=== PATIENT | female | born 1970 | race Caucasian/White ===

== ENCOUNTER 2020-07-02 13:58 | Emergency (ER) | payer BC ==
[~2020-07-02] VITALS: Ht 172.7 cm; Wt 83.4 kg
[2020-07-02] MEDS ORDERED: levoFLOXACIN-Levaquin 750MG/D5 150 ML IV ONE (15:45)
[2020-07-02] MEDS ORDERED: normal saline 1000ML IV soln IV ONE (15:45)
[2020-07-02 15:49] LABS: BASOPHILS % (AUTO) 0.5 % (0-1); EOSINOPHILS % (AUTO) 0 % (0-6); HEMATOCRIT 50.1 % (35.0-45.0); HEMOGLOBIN 16.7 g/dl (12.0-16.0); LYMPHOCYTES # (AUTO) 1.1 X10'3 (1.1-4.8); MEAN CORPUSCULAR HEMOGLOBIN 28.8 PG (27.0-31.0); MEAN CORPUSCULAR HGB CONC 33.4 g/dL (33.0-36.5); MEAN CORPUSCULAR VOLUME 86.2 FL (78-98); MEAN PLATELET VOLUME 9.7 FL (7.4-10.4); MONOCYTES # (AUTO) 0.4 X10'3 (0-0.9); NEUTROPHILS # (AUTO) 3.9 X10'3 (1.8-7.7); NEUTROPHILS % (AUTO) 72.5 % (42-75); PLATELET COUNT 144 X10'3 (140-440); RED BLOOD COUNT 5.81 X10'6 (4.20-5.60); RED CELL DISTRIBUTION WIDTH 14.1 % (11.5-14.5); WHITE BLOOD COUNT 5.4 X10'3 (4.5-11.0)
[2020-07-02] MEDS ORDERED: ALBUTEROL INHALER 1 PUFF/90 MCG INHALER IH PRN (15:50)
[2020-07-02 16:13] LABS: ALANINE AMINOTRANSFERASE 68 U/L (12-78); ALBUMIN 3.7 G/DL (3.4-5.0); ALBUMIN/GLOBULIN RATIO 0.7 (1.1-1.5); ALKALINE PHOSPHATASE 134 IU/L (46-116); ANION GAP 14 (8-16); ASPARTATE AMINO TRANSFERASE 51 U/L (10-37); BILIRUBIN,TOTAL 0.8 MG/DL (0.1-1.0); BLOOD UREA NITROGEN 23 MG/DL (7-18); BUN/CREATININE RATIO 17.7 (6.6-38.0); C-REACTIVE PROTEIN 11.25 MG/DL (0.0-0.5); CALCIUM 9.6 MG/DL (8.5-10.1); CHLORIDE 87 MMOL/L (99-107); POTASSIUM 5.3 MMOL/L (3.5-5.1); SODIUM 125 MMOL/L (135-145); TOTAL CARBON DIOXIDE 24.1 MMOL/L (24-32); TOTAL PROTEIN 9.1 G/DL (6.4-8.2); eGFR 44 ML/MIN
[2020-07-02 16:16] LABS: GLUCOSE 494 MG/DL (70-104)
[2020-07-02] MEDS ORDERED: normal saline 1000ML IV soln IVB ONE (16:20)
[2020-07-02] MEDS ORDERED: insulin regular, human 10 units/0.1 ml syringe SQ ONE (16:30)
--- NOTE | 2020-07-02 16:34 | NUR ---
POSSITVE COVID RESULT REPORTED TO [facility] HERCULES
[2020-07-02] MEDS ORDERED: insulin regular, human U-100 3ml vial - multi-dose SQ ONE (16:35)
[2020-07-02] MEDS ORDERED: dexamethasone sod phosphate 10mg/ml inj IV STA (16:42)
[2020-07-02] MEDS ORDERED: [UNRECOGNIZED DRUG - OTHER] IV ONE (16:45)
--- NOTE | 2020-07-02 16:58 | NUR ---
raheem [phone]
[2020-07-02] MEDS ORDERED: NO HOME MEDS (17:42)
[2020-07-02] MEDS ORDERED: DEXA4TAB67 PO (17:51)
[2020-07-02] MEDS ORDERED: AZIT500T PO (17:51)
[2020-07-02] MEDS ORDERED: ALBU6.7H9 INH (17:51)
[2020-07-02 18:08] VITALS: BP 112/68
[2020-07-02 20:32] LABS: ALBUMIN 2.6 G/DL (3.4-5.0); ANION GAP 8 (8-16); BLOOD UREA NITROGEN 19 MG/DL (7-18); BUN/CREATININE RATIO 19.2 (6.6-38.0); CALCIUM 8.1 MG/DL (8.5-10.1); CHLORIDE 97 MMOL/L (99-107); CREATININE 0.99 MG/DL (0.40-0.90); GLUCOSE 326 MG/DL (70-104); POTASSIUM 4.6 MMOL/L (3.5-5.1); SODIUM 131 MMOL/L (135-145); TOTAL CARBON DIOXIDE 25.9 MMOL/L (24-32); eGFR 60 ML/MIN
--- NOTE | 2020-07-05 09:56 | NUR ---
PT CALLED FOR COVID RESUTLS. INFORMED OF POSITIVE AND INSTRUCTED PT TO FOLLOW INSTRUCTIONS PROVIDED TO PT UPON DC
== END 2020-07-02 21:18 | disposition home or self-care (01) ==
LOC: ER 14:00
DX: U07.1 COVID-19 (principal); J12.82 Pneumonia due to coronavirus disease 2019; E11.65 Type 2 diabetes mellitus with hyperglycemia; E86.0 Dehydration; E87.1 Hypo-osmolality and hyponatremia; I10 Essential (primary) hypertension; Z87.891 Personal history of nicotine dependence; Z88.8 Allergy status to other drugs, medicaments and biological substances; Z79.2 Long term (current) use of antibiotics; Z79.899 Other long term (current) drug therapy
CPT/HCPCS: 36415; 71046; 80048; 80053; 82948; 83036; 83605; 83880; 84145; 85025; 86140; 87040; 87635; 93005; 96365; 96366; 96372; 96375; 99285; C9803; J1100; J1956; J7030; Q0243; 96367; J1815

== ENCOUNTER 2020-08-25 18:08 | Inpatient (IN) | payer BC ==
[~2020-08-25] VITALS: Ht 175.3 cm; Wt 88.1 kg
[~2020-08-25 18:08] MED LIST: ALBU6.7H9 INH; DEXA4TAB67 PO; NO HOME MEDS
[2020-08-25] MEDS ORDERED: normal saline 1000ML IV soln IVB ONE ×2 (18:50→20:50)
[2020-08-25 19:20] LABS: BASOPHILS % (AUTO) 0.2 % (0-1); EOSINOPHILS % (AUTO) 0 % (0-6); HEMATOCRIT 43.6 % (35.0-45.0); HEMOGLOBIN 14.4 g/dl (12.0-16.0); LYMPHOCYTES # (AUTO) 1.6 X10'3 (1.1-4.8); LYMPHOCYTES % (AUTO) 10.9 % (21-51); MEAN CORPUSCULAR HEMOGLOBIN 29.6 PG (27.0-31.0); MEAN CORPUSCULAR HGB CONC 32.9 g/dL (33.0-36.5); MEAN CORPUSCULAR VOLUME 89.8 FL (78-98); MEAN PLATELET VOLUME 9.6 FL (7.4-10.4); MONOCYTES # (AUTO) 1.3 X10'3 (0-0.9); MONOCYTES % (AUTO) 8.9 % (2-12); NEUTROPHILS # (AUTO) 11.6 X10'3 (1.8-7.7); PLATELET COUNT 218 X10'3 (140-440); RED BLOOD COUNT 4.85 X10'6 (4.20-5.60); RED CELL DISTRIBUTION WIDTH 14.3 % (11.5-14.5); WHITE BLOOD COUNT 14.5 X10'3 (4.5-11.0)
[2020-08-25 19:24] LABS: URINE HCG NEGATIVE (NEG)
[2020-08-25] MEDS ORDERED: ondansetron/PF 4mg/2ml inj IV ONE (19:25)
[2020-08-25] MEDS ORDERED: acetaminophen 325mg tablet PO ONE (19:25)
[2020-08-25 19:30] LABS: CLARITY,URINE CLEAR (Clear); COLOR,URINE YELLOW (Yellow); GLUCOSE, URINE >=1000 mg/dl (Neg); KETONES,URINE >=80 mg/dl (Neg); LEUKOCYTE ESTERASE ,URINE NEGATIVE (Neg); NITRITES, URINE NEGATIVE (Neg); OCCULT BLOOD,URINE MODERATE (Neg); PH,URINE 5.5 (4.8-8.0); PROTEIN,URINE >=300 mg/dl (Neg); UROBILINOGEN,URINE 0.2 E.U/dL (0.2-1.0)
[2020-08-25 19:31] LABS: UA COLLECTION TYPE VOIDED
[2020-08-25 19:34] LABS: ALANINE AMINOTRANSFERASE 29 U/L (12-78); ALBUMIN 3.1 G/DL (3.4-5.0); ALBUMIN/GLOBULIN RATIO 0.6 (1.1-1.5); ALKALINE PHOSPHATASE 139 IU/L (46-116); ANION GAP 17 (8-16); ASPARTATE AMINO TRANSFERASE 19 U/L (10-37); BILIRUBIN,TOTAL 0.8 MG/DL (0.1-1.0); BLOOD UREA NITROGEN 22 MG/DL (7-18); CALCIUM 10.3 MG/DL (8.5-10.1); CHLORIDE 83 MMOL/L (99-107); CREATININE 1.22 MG/DL (0.40-0.90); GLUCOSE 425 MG/DL (70-104); POTASSIUM 5.1 MMOL/L (3.5-5.1); TOTAL CARBON DIOXIDE 19.3 MMOL/L (24-32); TOTAL PROTEIN 8.5 G/DL (6.4-8.2); eGFR 47 ML/MIN
[2020-08-25 19:39] LABS: SODIUM 119 MMOL/L (135-145)
[2020-08-25] MEDS ORDERED: levoFLOXACIN-Levaquin 750MG/D5 150 ML IV STA (19:43)
[2020-08-25] MEDS ORDERED: insulin regular, human 10 units/0.1 ml syringe IV ONE ×2 (19:45→20:50)
[2020-08-25 19:56] LABS: BACTERIA,URINE NONE SEEN /HPF (Neg); RBC,URINE 0-2 /HPF (0-2); WBC,URINE 0-4 /HPF (0-4)
[2020-08-25 19:57] LABS: HYALINE CASTS 0-3 /LPF (NEGATIVE); MUCUS STRANDS FEW /LPF (Neg); SQUAMOUS EPITHELIAL CELL,UR FEW /LPF (FEW)
[2020-08-25] MEDS ORDERED: mag hydrox/Alum hydrox/simeth 30ml oral suspension PO PRN (20:25)
[2020-08-25] MEDS ORDERED: acetaminophen 325mg tablet PO PRN ×2 (20:25)
[2020-08-25] MEDS ORDERED: magnesium hydroxide 30ml (MOM) UD suspension PO PRN (20:25)
[2020-08-25] MEDS ORDERED: morphine 2 MG/ML inj. syringe IV PRN (20:25)
[2020-08-25] MEDS ORDERED: dextrose ORAL solution 15 GM/59 ML bottle PO PRN (20:25)
[2020-08-25] MEDS ORDERED: dextrose 50%-water 50ml dispensing syringe IV PRN ×2 (20:25)
[2020-08-25] MEDS ORDERED: potassium Cl 20 mEq SR tablet PO PRN ×2 (20:25)
[2020-08-25] MEDS ORDERED: glucagon, human recombinant 1mg kit SUBCUT PRN (20:25)
[2020-08-25] MEDS: azithromycin/NS 500mg/250ml 250 ML IV SCH ×2 (20:25→21:47)
[2020-08-25] MEDS ORDERED: magnesium 2GM in 50ml NS 50 ML IV PRN (20:25)
[2020-08-25] MEDS ORDERED: potassium Cl 40MEQ/1/2NS 520ml 520 ML IV PRN ×2 (20:25)
[2020-08-25] MEDS ORDERED: magnesium Cl slow-release 64mg tablet PO PRN (20:25)
[2020-08-25] MEDS ORDERED: MESSAGE TO PHARMACY PO ONE (20:25)
[2020-08-25] MEDS ORDERED: magnesium 4gm in 100ml NS 100 ML IV PRN (20:25)
[2020-08-25] MEDS ORDERED: proCHLORperazine 10 MG/2 ml inj IV ONE (20:45)
[2020-08-25] MEDS ORDERED: LORazepam 2 mg/ml vial IV ONE (20:45)
--- NOTE | 2020-08-25 21:17 | NUR ---
note that levaquin started after blood cultures drawn
[2020-08-25] MEDS ORDERED: LORazepam 2 mg/ml vial IV PRN (21:20)
[2020-08-25] MEDS ORDERED: LORazepam 1 MG tablet PO PRN (21:20)
[2020-08-25] MEDS: insulin glargine (Lantus) pen - multi-dose SQ SCH (22:08)
[2020-08-25] MEDS: normal saline 1000ml 1,000 ML IV SCH (22:15)
[2020-08-25 22:42] LABS: ETHANOL < 0.010 GM/DL (0.0-0.010)
[2020-08-25 23:00] LABS: URINE AMPHETAMINE SCREEN POSITIVE (Neg); URINE BARBITUATE SCREEN NEGATIVE (Neg); URINE BENZODIAZEPINES SCREEN NEGATIVE (Neg); URINE CANNABINOID SCREEN NEGATIVE (Neg); URINE COCAINE SCREEN NEGATIVE (Neg); URINE METHADONE SCREEN NEGATIVE (Neg); URINE OPIATE SCREEN NEGATIVE (Neg); URINE PHENCYCLIDINE SCREEN NEGATIVE (Neg)
[2020-08-26] MEDS: normal saline 1000ml 1,000 ML IV SCH ×2 (01:25→02:43)
[2020-08-26] MEDS ORDERED: normal saline 1000ML IV soln IVB ONE (02:20)
--- NOTE | 2020-08-26 02:21 | NUR ---
Patient continues to be diaphoretic, tachycardic.
--- NOTE | 2020-08-26 02:27 | NUR ---
MD aware of patient vital signs. Lactic acid ordered and additional 1L fluid bolus given
[2020-08-26] MEDS ORDERED: diltiazem-D5W 125mg/125ml 125 ML IV SCH (03:15)
[2020-08-26] MEDS ORDERED: diltiazem-NS 100mg/100ml 100 ML IV SCH (03:30)
--- NOTE | 2020-08-26 03:40 | NUR ---
Pt heart rate 130, respirations 30-40. MD notified of patient condition. New Orders for ABG, Cardizem drip, and to run a d-dimer.
[2020-08-26 03:46] LABS: BASOPHILS % (AUTO) 0.2 % (0-1); EOSINOPHILS % (AUTO) 0 % (0-6); HEMATOCRIT 38.1 % (35.0-45.0); HEMOGLOBIN 12.3 g/dl (12.0-16.0); LYMPHOCYTES # (AUTO) 0.8 X10'3 (1.1-4.8); LYMPHOCYTES % (AUTO) 7.2 % (21-51); MEAN CORPUSCULAR HEMOGLOBIN 29.5 PG (27.0-31.0); MEAN CORPUSCULAR HGB CONC 32.4 g/dL (33.0-36.5); MEAN CORPUSCULAR VOLUME 91.2 FL (78-98); MEAN PLATELET VOLUME 9.3 FL (7.4-10.4); MONOCYTES % (AUTO) 8.6 % (2-12); NEUTROPHILS # (AUTO) 9.8 X10'3 (1.8-7.7); PLATELET COUNT 193 X10'3 (140-440); RED BLOOD COUNT 4.17 X10'6 (4.20-5.60); RED CELL DISTRIBUTION WIDTH 14.8 % (11.5-14.5); WHITE BLOOD COUNT 11.7 X10'3 (4.5-11.0)
[2020-08-26 03:49] LABS: ABG BASE EXCESS -12.9 mmol/L (-2.0-2.0); ABG HCO3 12.1 mmol/L (22.0-26.0); ABG OXYGEN SATURATION 96.4 % (94-97); ABG PCO2 (T) 26.2 mmHg (32.0-45.0); ABG PO2 (T) 88.1 mmHg (75.0-100.0); ALLEN'S TEST Modified; FLOW 6 L/min; FMetHb 0.2 % (0.0-1.5); FO2Hb 95.2 % (94-97)
[2020-08-26 03:54] LABS: D-DIMER 1.64 MG/L FEU (0-0.50)
[2020-08-26 04:01] LABS: ALANINE AMINOTRANSFERASE 27 U/L (12-78); ALBUMIN 2.5 G/DL (3.4-5.0); ALBUMIN/GLOBULIN RATIO 0.5 (1.1-1.5); ALKALINE PHOSPHATASE 116 IU/L (46-116); ANION GAP 18 (8-16); ASPARTATE AMINO TRANSFERASE 25 U/L (10-37); BILIRUBIN,TOTAL 0.5 MG/DL (0.1-1.0); BLOOD UREA NITROGEN 18 MG/DL (7-18); CALCIUM 8.9 MG/DL (8.5-10.1); CHLORIDE 96 MMOL/L (99-107); CREATININE 1.06 MG/DL (0.40-0.90); GLUCOSE 323 MG/DL (70-104); MAGNESIUM 1.8 MG/DL (1.5-2.4); POTASSIUM 4.6 MMOL/L (3.5-5.1); SODIUM 130 MMOL/L (135-145); TOTAL CARBON DIOXIDE 16.2 MMOL/L (24-32); TOTAL PROTEIN 7.3 G/DL (6.4-8.2); eGFR 55 ML/MIN
[2020-08-26] MEDS ORDERED: iohexol 350MG/ML 100ml bottle IV ONE (04:24)
[2020-08-26] MEDS ORDERED: acetaminophen 120MG suppository, rectal RC ONE (05:00)
--- NOTE | 2020-08-26 05:02 | NUR ---
MD notified of patient temperature and increased work of breathing. New orders for BI PAP, rectal tylenol. MD notified of max dose of Cardizem reached at 20 mg/hr.
[2020-08-26] MEDS ORDERED: acetaminophen 650mg rectal suppository RC ONE (05:05)
[2020-08-26] MEDS ORDERED: acetaminophen 650mg rectal suppository RC PRN (05:15)
[2020-08-26] MEDS ORDERED: heparin 10,000 units/1 ML INJ IV PRN (06:05)
[2020-08-26] MEDS ORDERED: heparin 25,000 UNIT/250ml bag 250 ML IV SCH (06:05)
--- NOTE | 2020-08-26 07:33 | NUR ---
Hosp Paged PAGER ID: [phone] MESSAGE: ER 15 Farooq Vera RN #[id number], Pt admit for hyperglycemia, BS was >500, Pt given 2x 10unit humaLIN R ( total of 20) last does 9 hrs ago, Pt BS trending up again 325 now. Hep gtt started now DVT protocal per Dr Cunningham
[2020-08-26] MEDS ORDERED: insulin regular, human 10 units/0.1 ml syringe SQ ONE (07:45)
[2020-08-26 07:46] LABS: PARTIAL THROMBOPLASTIN TIME 30 SECONDS (22-32)
[2020-08-26] MEDS ORDERED: heparin, porcine 5000 units/ml vial SQ SCH (08:00)
[2020-08-26] MEDS: CefTRIAXone 2gm/D5W 50ml BAG 50 ML IV SCH (08:03)
[2020-08-26] MEDS: K and/or MAG REPLACEMENT MC SCH ×2 (08:04→20:00)
[2020-08-26] MEDS: pantoprazole 40 MG vial IV SCH (08:04)
[2020-08-26] MEDS: sodium bicarbonate (8.4%) inj. 100 MEQ in dextrose 5%-water 1,000 ML IV SCH ×2 (08:20→19:20)
[2020-08-26] MEDS ORDERED: dextrose 50%-water 50ml dispensing syringe IV PRN (08:30)
[2020-08-26] MEDS ORDERED: Insulin Reg/NS 100units/100mL 100 ML IV SCH ×2 (08:30→14:30)
[2020-08-26] MEDS: azithromycin/NS 500mg/250ml 250 ML IV SCH (08:40)
[2020-08-26] MEDS ORDERED: furosemide 10 MG/1 ML 10ml inj IV ONE (09:25)
--- NOTE | 2020-08-26 10:15 | NUR ---
Patient in room PCU 3009. I have received report from juan cardoso rn and had the opportunity to ask questions and assume patient care.
[2020-08-26 11:05] VITALS: BP 129/78
--- NOTE | 2020-08-26 11:05 | NUR ---
received pt into room 3009, oriented to surroundings pt lethargic, but responsive, resp at bedside, sao2 @ r/a = 88% , pt placed on 3l n/c,sao2=93%, rr=28-36, insulin gtt @3 ml/hr, accu check =360pt placed on tele # 16, pt in NSR, rate 88,no ectopy now, hy=598/78 pt denies pain ,call gamble in hand
[2020-08-26 13:26] LABS: ALBUMIN 2.4 G/DL (3.4-5.0); ANION GAP 15 (8-16); BLOOD UREA NITROGEN 22 MG/DL (7-18); BUN/CREATININE RATIO 18.8 (6.6-38.0); CALCIUM 9.2 MG/DL (8.5-10.1); CHLORIDE 99 MMOL/L (99-107); CREATININE 1.17 MG/DL (0.40-0.90); GLUCOSE 336 MG/DL (70-104); SODIUM 134 MMOL/L (135-145); eGFR 49 ML/MIN
[2020-08-26 14:00] VITALS: BP 126/75
[2020-08-26] MEDS: heparin, porcine 5000 units/ml vial SQ SCH (16:00)
[2020-08-26 17:30] LABS: ALBUMIN 2.3 G/DL (3.4-5.0); ANION GAP 12 (8-16); BLOOD UREA NITROGEN 19 MG/DL (7-18); BUN/CREATININE RATIO 20.4 (6.6-38.0); CALCIUM 9.1 MG/DL (8.5-10.1); CHLORIDE 101 MMOL/L (99-107); CREATININE 0.93 MG/DL (0.40-0.90); GLUCOSE 210 MG/DL (70-104); POTASSIUM 3.7 MMOL/L (3.5-5.1); SODIUM 134 MMOL/L (135-145); TOTAL CARBON DIOXIDE 20.7 MMOL/L (24-32); eGFR 64 ML/MIN
--- NOTE | 2020-08-26 18:26 | NUR ---
Problems reprioritized. Patient report given, questions answered & plan of care reviewed with ricki peterson.
--- NOTE | 2020-08-26 18:27 | NUR ---
Patient in room PCU 3009. I have received report from DIOMEDES Powell and had the opportunity to ask questions and assume patient care.
[2020-08-26] MEDS: insulin Lispro (HumaLOG) vial - multi-dose SQ SCH (18:41)
[2020-08-26] MEDS: insulin glargine (Lantus) pen - multi-dose SQ SCH (21:13)
[2020-08-26 22:00] VITALS: BP 111/70
[2020-08-27] VITALS (7 sets, daily range): BP systolic 97–125; BP diastolic 63–78
[2020-08-27] MEDS: heparin, porcine 5000 units/ml vial SQ SCH ×4 (01:33→23:55)
[2020-08-27] MEDS: sodium bicarbonate (8.4%) inj. 100 MEQ in dextrose 5%-water 1,000 ML IV SCH (06:20)
--- NOTE | 2020-08-27 06:20 | NUR ---
Patient in room PCU 3009. I have received report from DIOMEDES Corrales and had the opportunity to ask questions and assume patient care.
--- NOTE | 2020-08-27 06:28 | NUR ---
Problems reprioritized. Patient report given, questions answered & plan of care reviewed with DIOMEDES Henson.
[2020-08-27] MEDS: CefTRIAXone 2gm/D5W 50ml BAG 50 ML IV SCH (07:36)
[2020-08-27] MEDS: pantoprazole 40 MG vial IV SCH (07:37)
[2020-08-27 07:53] LABS: BASOPHILS % (AUTO) 0.5 % (0-1); EOSINOPHILS % (AUTO) 0.1 % (0-6); HEMATOCRIT 37.1 % (35.0-45.0); HEMOGLOBIN 12.1 g/dl (12.0-16.0); LYMPHOCYTES # (AUTO) 1.2 X10'3 (1.1-4.8); LYMPHOCYTES % (AUTO) 17.5 % (21-51); MEAN CORPUSCULAR HGB CONC 32.7 g/dL (33.0-36.5); MEAN CORPUSCULAR VOLUME 88.9 FL (78-98); MEAN PLATELET VOLUME 9.4 FL (7.4-10.4); MONOCYTES # (AUTO) 0.6 X10'3 (0-0.9); MONOCYTES % (AUTO) 8.8 % (2-12); NEUTROPHILS # (AUTO) 4.9 X10'3 (1.8-7.7); NEUTROPHILS % (AUTO) 73.1 % (42-75); PLATELET COUNT 171 X10'3 (140-440); RED BLOOD COUNT 4.17 X10'6 (4.20-5.60); RED CELL DISTRIBUTION WIDTH 14.6 % (11.5-14.5); WHITE BLOOD COUNT 6.6 X10'3 (4.5-11.0)
[2020-08-27] MEDS: K and/or MAG REPLACEMENT MC SCH ×2 (08:00→19:37)
[2020-08-27 08:15] LABS: ALANINE AMINOTRANSFERASE 37 U/L (12-78); ALBUMIN 2.1 G/DL (3.4-5.0); ALBUMIN/GLOBULIN RATIO 0.5 (1.1-1.5); ALKALINE PHOSPHATASE 105 IU/L (46-116); ANION GAP 13 (8-16); ASPARTATE AMINO TRANSFERASE 42 U/L (10-37); BILIRUBIN,TOTAL 0.3 MG/DL (0.1-1.0); BLOOD UREA NITROGEN 18 MG/DL (7-18); BUN/CREATININE RATIO 22.5 (6.6-38.0); CALCIUM 9.2 MG/DL (8.5-10.1); CHLORIDE 95 MMOL/L (99-107); GLUCOSE 229 MG/DL (70-104); MAGNESIUM 1.9 MG/DL (1.5-2.4); POTASSIUM 3.8 MMOL/L (3.5-5.1); SODIUM 131 MMOL/L (135-145); TOTAL CARBON DIOXIDE 22.6 MMOL/L (24-32); TOTAL PROTEIN 6.7 G/DL (6.4-8.2); eGFR 77 ML/MIN
[2020-08-27] MEDS: azithromycin/NS 500mg/250ml 250 ML IV SCH (09:19)
[2020-08-27] MEDS: insulin Lispro (HumaLOG) vial - multi-dose SQ SCH ×4 (09:31→20:52)
--- NOTE | 2020-08-27 13:45 | NUR ---
Malnutrition consult: Pt seen at bedside reports UBW 185 lbs, current documented scaled wt is 186 lbs. Pt denies wt loss and endorses a good appetite which is evident with documented 100% PO intake on CHO controlled diet. Pt states she is getting full from meals. Pt with no documented significant decrease in muscle strength or edema. No visible fat or muscle wasting. No concerns for malnutrition at this time. Pt admit for sepsis possibly r/t PNA, hyponatremia, acute respiratory failure, and DKA, recently diagnosed with T2DM in June of this year with A1c of 14.0%. Pt states she was not provided with glucometer or DM medication rx following diagnosis of DM. Pt reports earliest appointment with MD is October. Pt provided with written and verbal DM education. Information obtained was d/w patient's RN and recommended pt receive a glucometer and DM med rx prior to discharge. Pt denies food allergies, difficulty chewing/swallowing, or constipation/diarrhea. Pt provided with RD contact information. Will continue to follow. Recommendations: 1) Continue CHO controlled diet 2) Monitor need for additional protein 3) Bowel care per rx 4) Weekly scaled weights Addendum: 08/27/20 at [address] Amended: Links added.
[2020-08-27] MEDS: carVEDilol 3.125mg tablet PO SCH ×2 (14:01→19:08)
[2020-08-27] MEDS: HYDROcodone/acetaminophen 5mg/325mg tablet PO PRN ×2 (14:46→19:07)
--- NOTE | 2020-08-27 17:00 | NUR ---
Paged Dr Oro PAGER ID: [phone] MESSAGE: Room 3009, Jessica Vera. 9 run of [employer]. S, pt asymptomatic. Natividad [phone]
[2020-08-27] MEDS ORDERED: haloperidol 5mg tablet PO PRN (17:35)
[2020-08-27] MEDS ORDERED: thiamine 100mg/ml 2ml inj. IV ONE (17:35)
[2020-08-27] MEDS ORDERED: dextrose 50%-water 50ml dispensing syringe IV PRN (17:35)
[2020-08-27] MEDS ORDERED: LORazepam 1 MG tablet PO PRN (17:35)
[2020-08-27] MEDS ORDERED: LORazepam 2 mg/ml vial IV PRN (17:35)
[2020-08-27] MEDS ORDERED: haloperidol lactate 5mg/ml inj IM PRN (17:35)
[2020-08-27] MEDS ORDERED: thiamine inj. 100 MG in normal saline 100ml IV soln 99 ML IV ONE (17:45)
--- NOTE | 2020-08-27 18:21 | NUR ---
Problems reprioritized. Patient report given, questions answered & plan of care reviewed with DIOMEDES Rivero.
[2020-08-27] MEDS: lactobacillus rhamnosus 10,000 MMU CELLS/CAPSULE PO SCH (19:07)
[2020-08-27] MEDS: insulin glargine (Lantus) pen - multi-dose SQ SCH (20:49)
[2020-08-28] VITALS (7 sets, daily range): BP systolic 91–120; BP diastolic 63–77
[2020-08-28] MEDS: HYDROcodone/acetaminophen 5mg/325mg tablet PO PRN ×2 (02:09→13:26)
[2020-08-28] MEDS: ondansetron/PF 4mg/2ml inj IV PRN (02:16)
[2020-08-28] MEDS ORDERED: guaiFENesin 200 MG/10 ML oral syrup UD cup PO PRN (03:00)
[2020-08-28] MEDS ORDERED: benzonatate 100mg capsule PO PRN (03:00)
--- NOTE | 2020-08-28 06:10 | NUR ---
Patient in room PCU 3009. I have received report from DIOMEDES Rivero and had the opportunity to ask questions and assume patient care.
--- NOTE | 2020-08-28 06:15 | NUR ---
Patient in room PCU 3009. I have received report from DIOMEDES Rivero and had the opportunity to ask questions and assume patient care.
[2020-08-28 07:11] LABS: BASOPHILS % (AUTO) 0.7 % (0-1); EOSINOPHILS % (AUTO) 0.2 % (0-6); HEMATOCRIT 37.9 % (35.0-45.0); HEMOGLOBIN 12.4 g/dl (12.0-16.0); LYMPHOCYTES # (AUTO) 1.2 X10'3 (1.1-4.8); LYMPHOCYTES % (AUTO) 22.3 % (21-51); MEAN CORPUSCULAR HEMOGLOBIN 29.2 PG (27.0-31.0); MEAN CORPUSCULAR HGB CONC 32.6 g/dL (33.0-36.5); MEAN CORPUSCULAR VOLUME 89.6 FL (78-98); MEAN PLATELET VOLUME 9.5 FL (7.4-10.4); MONOCYTES # (AUTO) 0.4 X10'3 (0-0.9); MONOCYTES % (AUTO) 8.5 % (2-12); NEUTROPHILS # (AUTO) 3.5 X10'3 (1.8-7.7); NEUTROPHILS % (AUTO) 68.3 % (42-75); PLATELET COUNT 178 X10'3 (140-440); RED BLOOD COUNT 4.23 X10'6 (4.20-5.60); RED CELL DISTRIBUTION WIDTH 14.7 % (11.5-14.5); WHITE BLOOD COUNT 5.2 X10'3 (4.5-11.0)
[2020-08-28 07:38] LABS: ALANINE AMINOTRANSFERASE 186 U/L (12-78); ALBUMIN 2.3 G/DL (3.4-5.0); ALBUMIN/GLOBULIN RATIO 0.5 (1.1-1.5); ALKALINE PHOSPHATASE 237 IU/L (46-116); ANION GAP 15 (8-16); ASPARTATE AMINO TRANSFERASE 246 U/L (10-37); BILIRUBIN,TOTAL 0.3 MG/DL (0.1-1.0); BLOOD UREA NITROGEN 23 MG/DL (7-18); BUN/CREATININE RATIO 34.3 (6.6-38.0); CALCIUM 9.4 MG/DL (8.5-10.1); CHLORIDE 95 MMOL/L (99-107); CREATININE 0.67 MG/DL (0.40-0.90); GLUCOSE 249 MG/DL (70-104); MAGNESIUM 2.3 MG/DL (1.5-2.4); POTASSIUM 3.9 MMOL/L (3.5-5.1); SODIUM 131 MMOL/L (135-145); TOTAL PROTEIN 6.9 G/DL (6.4-8.2); eGFR > 90 ML/MIN
[2020-08-28] MEDS: K and/or MAG REPLACEMENT MC SCH ×2 (08:00→19:25)
[2020-08-28] MEDS: lactobacillus rhamnosus 10,000 MMU CELLS/CAPSULE PO SCH ×2 (08:15→19:26)
[2020-08-28] MEDS: carVEDilol 3.125mg tablet PO SCH ×2 (08:16→19:25)
[2020-08-28] MEDS: pantoprazole 40mg Tablet.DR PO SCH (08:16)
[2020-08-28] MEDS: heparin, porcine 5000 units/ml vial SQ SCH ×3 (08:17→23:58)
[2020-08-28] MEDS: CefTRIAXone 2gm/D5W 50ml BAG 50 ML IV SCH (08:17)
[2020-08-28] MEDS: azithromycin/NS 500mg/250ml 250 ML IV SCH (08:17)
[2020-08-28] MEDS: insulin Lispro (HumaLOG) vial - multi-dose SQ SCH ×3 (08:24→19:23)
[2020-08-28] MEDS: lisinopril 5mg tablet PO SCH ×2 (09:15→13:10)
--- NOTE | 2020-08-28 14:17 | NUR ---
PAGE TO SUDHIR PAGER ID: [phone] MESSAGE: ROOM 3009, MARGA, ABD US RESULTS ARE IN, CAN THE PT EAT? THANK YOU. ANDRES Keys [phone]
--- NOTE | 2020-08-28 15:03 | NUR ---
Nutrition consult: D/w RN who reports SKIN INSTALLER requested dietitian consult to reinforce monitoring salt intake. Patient's serum Na 119 MMOL/L on admit, currently up to 131 MMOL/L. Salt restricted diet education not appropriate at this time. Per SKIN INSTALLER note pt with CHF with EF 30-35%, pt pending LifeVest. Pt seen at bedside provided with written and verbal heart healthy nutrition therapy education. Pt verbalized understanding and reports she doesn't typically use a lot of salt in her diet. Pt was provided with RD contact information at visit yesterday. Will continue to follow. Addendum: 08/28/20 at [address] Amended: Links added.
--- NOTE | 2020-08-28 18:02 | NUR ---
[place] documentation: I have reviewed and agree with all interventions, assessments performed and documented by Thu HERCULES.
--- NOTE | 2020-08-28 18:12 | NUR ---
Problems reprioritized. Patient report given, questions answered & plan of care reviewed with DIOMEDES Rivero.
[2020-08-28] MEDS: insulin glargine (Lantus) pen - multi-dose SQ SCH (21:17)
[2020-08-29 02:00] VITALS: BP 92/55
[2020-08-29 06:00] VITALS: BP 110/59
--- NOTE | 2020-08-29 06:05 | NUR ---
Patient in room PCU 3009. I have received report from DIOMEDES Dover and had the opportunity to ask questions and assume patient care.
[2020-08-29] MEDS: dextrose ORAL solution 15 GM/59 ML bottle PO PRN ×3 (07:03→17:36)
[2020-08-29 07:11] LABS: BASOPHILS # (AUTO) 0.1 X10'3 (0-0.2); BASOPHILS % (AUTO) 1.2 % (0-1); EOSINOPHILS # (AUTO) 0.1 X10'3 (0-0.9); HEMATOCRIT 37.3 % (35.0-45.0); LYMPHOCYTES # (AUTO) 3.2 X10'3 (1.1-4.8); LYMPHOCYTES % (AUTO) 40.7 % (21-51); MEAN CORPUSCULAR HEMOGLOBIN 28.7 PG (27.0-31.0); MEAN CORPUSCULAR HGB CONC 32.2 g/dL (33.0-36.5); MEAN PLATELET VOLUME 9.5 FL (7.4-10.4); MONOCYTES # (AUTO) 0.4 X10'3 (0-0.9); MONOCYTES % (AUTO) 4.6 % (2-12); NEUTROPHILS # (AUTO) 4.1 X10'3 (1.8-7.7); NEUTROPHILS % (AUTO) 52.5 % (42-75); PLATELET COUNT 257 X10'3 (140-440); RED BLOOD COUNT 4.19 X10'6 (4.20-5.60); RED CELL DISTRIBUTION WIDTH 15.1 % (11.5-14.5); WHITE BLOOD COUNT 7.9 X10'3 (4.5-11.0)
[2020-08-29] MEDS: K and/or MAG REPLACEMENT MC SCH ×2 (08:00→19:25)
[2020-08-29 08:17] LABS: ALANINE AMINOTRANSFERASE 175 U/L (12-78); ALBUMIN 2.1 G/DL (3.4-5.0); ALBUMIN/GLOBULIN RATIO 0.5 (1.1-1.5); ALKALINE PHOSPHATASE 215 IU/L (46-116); ANION GAP 11 (8-16); ASPARTATE AMINO TRANSFERASE 257 U/L (10-37); BILIRUBIN,TOTAL 0.2 MG/DL (0.1-1.0); BLOOD UREA NITROGEN 20 MG/DL (7-18); BUN/CREATININE RATIO 28.2 (6.6-38.0); CALCIUM 9.4 MG/DL (8.5-10.1); CHLORIDE 98 MMOL/L (99-107); CREATININE 0.71 MG/DL (0.40-0.90); GLUCOSE 60 MG/DL (70-104); MAGNESIUM 2.1 MG/DL (1.5-2.4); POTASSIUM 3.3 MMOL/L (3.5-5.1); SODIUM 135 MMOL/L (135-145); TOTAL PROTEIN 6.5 G/DL (6.4-8.2); eGFR 88 ML/MIN
[2020-08-29] MEDS: carVEDilol 3.125mg tablet PO SCH ×2 (08:47→19:24)
[2020-08-29] MEDS: lisinopril 5mg tablet PO SCH (08:47)
[2020-08-29] MEDS: lactobacillus rhamnosus 10,000 MMU CELLS/CAPSULE PO SCH ×2 (08:47→19:24)
[2020-08-29] MEDS: heparin, porcine 5000 units/ml vial SQ SCH ×2 (08:48→15:49)
[2020-08-29] MEDS: CefTRIAXone 2gm/D5W 50ml BAG 50 ML IV SCH (08:48)
[2020-08-29] MEDS: azithromycin/NS 500mg/250ml 250 ML IV SCH (08:49)
[2020-08-29] MEDS: pantoprazole 40mg Tablet.DR PO SCH (08:52)
[2020-08-29] MEDS: insulin Lispro (HumaLOG) vial - multi-dose SQ SCH ×3 (09:40→19:28)
[2020-08-29] MEDS: ondansetron/PF 4mg/2ml inj IV PRN ×2 (10:44→21:22)
[2020-08-29 11:00] VITALS: BP 97/43
[2020-08-29] MEDS ORDERED: potassium Cl 40MEQ/1/2NS 520ml 520 ML IV PRN (11:25)
[2020-08-29] MEDS ORDERED: potassium Cl 20 mEq SR tablet PO PRN ×2 (11:25)
[2020-08-29] MEDS: furosemide 40mg/4ml inj IV SCH ×2 (12:24→19:24)
[2020-08-29 15:00] VITALS: BP 85/60
[2020-08-29 18:00] VITALS: BP 92/53
[2020-08-29] MEDS: insulin glargine (Lantus) pen - multi-dose SQ SCH (21:20)
[2020-08-29 22:00] VITALS: BP 91/60
[2020-08-30] MEDS: heparin, porcine 5000 units/ml vial SQ SCH ×2 (00:42→07:25)
[2020-08-30 02:00] VITALS: BP 92/57
[2020-08-30 06:00] VITALS: BP 92/56
--- NOTE | 2020-08-30 06:19 | NUR ---
Problems reprioritized. Patient report given, questions answered & plan of care reviewed with Anna HERCULES.
[2020-08-30] MEDS: lactobacillus rhamnosus 10,000 MMU CELLS/CAPSULE PO SCH (07:25)
[2020-08-30] MEDS: pantoprazole 40mg Tablet.DR PO SCH (07:25)
[2020-08-30 07:26] VITALS: BP_SYST 92
[2020-08-30] MEDS: carVEDilol 3.125mg tablet PO SCH (07:26)
[2020-08-30] MEDS: K and/or MAG REPLACEMENT MC SCH (07:26)
[2020-08-30] MEDS: lisinopril 5mg tablet PO SCH (07:26)
[2020-08-30] MEDS: furosemide 40mg/4ml inj IV SCH ×2 (07:27→08:53)
[2020-08-30 08:11] LABS: BASOPHILS # (AUTO) 0.1 X10'3 (0-0.2); BASOPHILS % (AUTO) 0.7 % (0-1); EOSINOPHILS # (AUTO) 0.1 X10'3 (0-0.9); EOSINOPHILS % (AUTO) 1.1 % (0-6); HEMATOCRIT 36.1 % (35.0-45.0); HEMOGLOBIN 11.7 g/dl (12.0-16.0); LYMPHOCYTES # (AUTO) 3.5 X10'3 (1.1-4.8); LYMPHOCYTES % (AUTO) 45.7 % (21-51); MEAN CORPUSCULAR HEMOGLOBIN 28.9 PG (27.0-31.0); MEAN CORPUSCULAR HGB CONC 32.5 g/dL (33.0-36.5); MEAN CORPUSCULAR VOLUME 88.9 FL (78-98); MEAN PLATELET VOLUME 9.1 FL (7.4-10.4); MONOCYTES # (AUTO) 0.6 X10'3 (0-0.9); MONOCYTES % (AUTO) 7.5 % (2-12); NEUTROPHILS # (AUTO) 3.4 X10'3 (1.8-7.7); PLATELET COUNT 260 X10'3 (140-440); RED BLOOD COUNT 4.06 X10'6 (4.20-5.60); RED CELL DISTRIBUTION WIDTH 14.9 % (11.5-14.5); WHITE BLOOD COUNT 7.6 X10'3 (4.5-11.0)
[2020-08-30 08:24] LABS: ALANINE AMINOTRANSFERASE 123 U/L (12-78); ALBUMIN 2.1 G/DL (3.4-5.0); ALBUMIN/GLOBULIN RATIO 0.5 (1.1-1.5); ALKALINE PHOSPHATASE 172 IU/L (46-116); ANION GAP 8 (8-16); ASPARTATE AMINO TRANSFERASE 103 U/L (10-37); BILIRUBIN,TOTAL 0.2 MG/DL (0.1-1.0); BLOOD UREA NITROGEN 15 MG/DL (7-18); BUN/CREATININE RATIO 17.9 (6.6-38.0); CHLORIDE 99 MMOL/L (99-107); CREATININE 0.84 MG/DL (0.40-0.90); GLUCOSE 161 MG/DL (70-104); MAGNESIUM 1.8 MG/DL (1.5-2.4); POTASSIUM 3.7 MMOL/L (3.5-5.1); SODIUM 136 MMOL/L (135-145); TOTAL CARBON DIOXIDE 28.9 MMOL/L (24-32); TOTAL PROTEIN 6.1 G/DL (6.4-8.2); eGFR 72 ML/MIN
[2020-08-30] MEDS ORDERED: COR3.125T PO (08:51)
[2020-08-30] MEDS ORDERED: FURO-149 PO (08:51)
[2020-08-30] MEDS ORDERED: LANTUS SQ (08:51)
[2020-08-30] MEDS ORDERED: LISI-790 PO (08:51)
[2020-08-30] MEDS: insulin Lispro (HumaLOG) vial - multi-dose SQ SCH (09:20)
--- NOTE | 2020-08-30 10:57 | NUR ---
DISCHARGE PAPERWORK DONE. ALL QUESTIONS ANSWERED. IV AND TELE DISCONTINUED. NO S/S OF COMPLICATIONS. PAPERWORK COPIED AND PUT IN CHART. ALL BELONGINGS WITH PT. PT DOWN TO LOBBY IN WHEELCHAIR BY BANK GUARD.
== END 2020-08-30 10:57 | disposition home or self-care (01) | DRG 871 ==
LOC: ER 18:09 → ED HOLD 20:24 → PCU 3S 08-26 11:00
PROVIDERS: ADMIT Internal Medicine; ATTEND Family Medicine
PROC: B32T1ZZ Computerized Tomography (CT Scan) of Left Pulmonary Artery using Low Osmolar Contrast (ICD-10-PCS; principal; 2020-08-26)
PROC: B32S1ZZ Computerized Tomography (CT Scan) of Right Pulmonary Artery using Low Osmolar Contrast (ICD-10-PCS; 2020-08-26)
PROC: 5A09357 Assistance with Respiratory Ventilation, Less than 24 Consecutive Hours, Continuous Positive Airway Pressure (ICD-10-PCS; 2020-08-26)
DX: A41.9 Sepsis, unspecified organism (principal); E11.10 Type 2 diabetes mellitus with ketoacidosis without coma; I50.21 Acute systolic (congestive) heart failure; J18.9 Pneumonia, unspecified organism; J96.01 Acute respiratory failure with hypoxia; E87.1 Hypo-osmolality and hyponatremia; I11.0 Hypertensive heart disease with heart failure; J30.2 Other seasonal allergic rhinitis; Z20.822 Contact with and (suspected) exposure to COVID-19; K76.0 Fatty (change of) liver, not elsewhere classified; Z79.4 Long term (current) use of insulin; Z79.899 Other long term (current) drug therapy; Z82.3 Family history of stroke; Z82.5 Family history of asthma and other chronic lower respiratory diseases; Z83.3 Family history of diabetes mellitus; Z87.891 Personal history of nicotine dependence
CPT/HCPCS: 36415; 36600; 71045; 71275; 76700; 80048; 80053; 80305; 80320; 81001; 81025; 82803; 82948; 83605; 83735; 83880; 84145; 85018; 85025; 85379; 85610; 85730; 87040; 87635; 93306; 94660; 94760; 94799; 96365; 96375; 97116; 97161; 97530; 99285; C9113; C9803; G0378; J0456; J0696; J0780; J1644; J1815; J1940; J1956; J2060; J2405; J3490; J7030; Q9967

== ENCOUNTER 2023-06-09 00:56 | Inpatient (IN) | payer BC ==
[~2023-06-09] VITALS: Ht 170.2 cm; Wt 83.9 kg
[2023-06-09] VITALS (29 sets, daily range): BP systolic 86–182; BP diastolic 52–122; PULSE 79–116; RESP 16–23; O2SAT 94–100
[~2023-06-09 00:56] MED LIST changes: -ALBU6.7H9 INH; +COR3.125T PO; -DEXA4TAB67 PO; +FURO-149 PO; +LISI5TAB22 PO; -NO HOME MEDS
[2023-06-09] MEDS ORDERED: NORepinephrine 8mg/ 250ml NS 250 ML IV PRN ×2 (01:05→06:10)
[2023-06-09 01:10] LABS: ABG BASE EXCESS -7.3 mmol/L (-2.0-2.0); ABG HCO3 18.8 mmol/L (22.0-26.0); ABG OXYGEN SATURATION 99.6 % (94-97); ABG PCO2 (T) 36.1 mmHg (32.0-45.0); ABG PH (T) 7.322 (7.350-7.450); ABG PO2 (T) 260.8 mmHg (75.0-100.0); ALLEN'S TEST Modified; FCOHb 0.8 % (0.0-3.9); FHHb 0.4 % (0.0-5.0); FMetHb 0.4 % (0.0-1.5); FO2Hb 98.4 % (94-97); MODE VENT - prvc; PATIENT TEMPERATURE 34.7; PEEP 5 cm H2O; RESPIRATORY RATE 16 b/min; TIDAL VOLUME 400 mL; TOTAL HEMOGLOBIN 15.1 G/dl (12.0-16.0)
[2023-06-09] MEDS ORDERED: iohexol 350MG/ML 100ml bottle IV ONE (01:14)
[2023-06-09] MEDS: NORepinephrine 8mg/ 250ml NS 250 ML IV PRN (01:47)
[2023-06-09] MEDS: propofol 1000mg/100ml bottle 100 ML IV PRN ×2 (01:48→14:46)
[2023-06-09 01:51] LABS: BASOPHILS # (AUTO) 0.1 X10'3 (0-0.2); BASOPHILS % (AUTO) 0.5 % (0-1); EOSINOPHILS % (AUTO) 0.3 % (0-6); HEMOGLOBIN 13.7 g/dl (12.0-16.0); LYMPHOCYTES # (AUTO) 1.3 X10'3 (1.1-4.8); LYMPHOCYTES % (AUTO) 10.1 % (21-51); MEAN CORPUSCULAR HEMOGLOBIN 27.2 PG (27.0-31.0); MEAN CORPUSCULAR HGB CONC 31.1 g/dL (33.0-36.5); MEAN CORPUSCULAR VOLUME 87.6 FL (78-98); MEAN PLATELET VOLUME 10.3 FL (7.4-10.4); MONOCYTES # (AUTO) 0.8 X10'3 (0-0.9); MONOCYTES % (AUTO) 5.8 % (2-12); NEUTROPHILS # (AUTO) 10.9 X10'3 (1.8-7.7); NEUTROPHILS % (AUTO) 83.3 % (42-75); PLATELET COUNT 161 X10'3 (140-440); RED BLOOD COUNT 5.02 X10'6 (4.20-5.60); RED CELL DISTRIBUTION WIDTH 16.3 % (11.5-14.5); WHITE BLOOD COUNT 13.1 X10'3 (4.5-11.0)
[2023-06-09 02:18] LABS: ACETAMINOPHEN < 2.0 UG/ML (10-30); ALANINE AMINOTRANSFERASE 175 U/L (12-78); ALBUMIN 2.7 G/DL (3.4-5.0); ALBUMIN/GLOBULIN RATIO 0.9 (1.1-1.5); ALKALINE PHOSPHATASE 224 IU/L (46-116); ANION GAP 8 (8-16); ASPARTATE AMINO TRANSFERASE 357 U/L (10-37); BILIRUBIN,TOTAL 1.6 MG/DL (0.1-1.0); BLOOD UREA NITROGEN 28 MG/DL (7-18); BUN/CREATININE RATIO 15.6 (10.0-20.0); CALCIUM 7.2 MG/DL (8.5-10.1); CHLORIDE 102 MMOL/L (99-107); CREATININE 1.79 MG/DL (0.40-0.90); ETHANOL < 10 MG/DL (<10); POTASSIUM 4.5 MMOL/L (3.5-5.1); PRO BRAIN NATRIURETIC PEPTIDE 7792 PG/ML (0-125); SODIUM 136 MMOL/L (135-145); TOTAL PROTEIN 5.7 G/DL (6.4-8.2); eCRCL 36 ML/MIN; eGFR 30 ML/MIN
[2023-06-09] MEDS: FENTANYL-0.9 % NACL/PF 100 ML IV PRN ×2 (02:21→18:06)
[2023-06-09 02:24] LABS: GLUCOSE 606 MG/DL (70-104)
[2023-06-09] MEDS: magnesium 2GM in 50ml NS 50 ML IV ONE ×2 (02:53→04:53)
[2023-06-09 03:15] LABS: BILIRUBIN,URINE SMALL (Neg); CLARITY,URINE SLIGHTLY CLOUDY (Clear); GLUCOSE, URINE >=1000 mg/dl (Neg); KETONES,URINE NEGATIVE (Neg); LEUKOCYTE ESTERASE ,URINE NEGATIVE (Neg); NITRITES, URINE NEGATIVE (Neg); OCCULT BLOOD,URINE LARGE (Neg); PROTEIN,URINE >=300 mg/dl (Neg)
[2023-06-09 03:16] LABS: COLOR,URINE DARK YELLOW (Yellow); UA COLLECTION TYPE NON-SPECIFIED
[2023-06-09 03:22] LABS: MUCUS STRANDS FEW /LPF (Neg); SQUAMOUS EPITHELIAL CELL,UR MANY /LPF (FEW)
[2023-06-09 03:23] LABS: RBC,URINE 20-50 /HPF (0-2); WBC,URINE 0-4 /HPF (0-4)
[2023-06-09 03:24] LABS: TRANSITIONAL EPI CELLS,URINE MODERATE /HPF
[2023-06-09 03:29] LABS: AMORPHOUS URATES 4+; HYALINE CASTS 0-3 /LPF (NEGATIVE)
[2023-06-09 03:30] LABS: BACTERIA,URINE 1+ /HPF (Neg)
[2023-06-09 03:33] LABS: URINE AMPHETAMINE SCREEN POSITIVE (Neg); URINE BARBITUATE SCREEN NEGATIVE (Neg); URINE BENZODIAZEPINES SCREEN POSITIVE (Neg); URINE CANNABINOID SCREEN NEGATIVE (Neg); URINE COCAINE SCREEN NEGATIVE (Neg); URINE METHADONE SCREEN NEGATIVE (Neg); URINE OPIATE SCREEN NEGATIVE (Neg); URINE PHENCYCLIDINE SCREEN NEGATIVE (Neg)
[2023-06-09] MEDS: insulin regular, human 10 units/0.1 ml syringe IV ONE (04:44)
[2023-06-09] MEDS: furosemide 10 MG/1 ML 10ml inj IV ONE (05:23)
[2023-06-09] MEDS ORDERED: acetaminophen 325mg tablet PO PRN (06:10)
[2023-06-09] MEDS ORDERED: dextrose 50%-water 50ml dispensing syringe IV PRN (06:10)
[2023-06-09] MEDS ORDERED: ondansetron/PF 4mg/2ml inj IV PRN (06:10)
[2023-06-09] MEDS ORDERED: DEXTROSE 15 GM of carb/4 tabs (each vial/BOTTLE has 4 tablets) PO PRN ×2 (06:10)
[2023-06-09] MEDS ORDERED: glucagon, human recombinant 1mg kit SUBCUT PRN (06:10)
[2023-06-09] MEDS: MESSAGE TO PHARMACY PO ONE (06:44)
[2023-06-09] MEDS: LIDOcaine 2% 10ml TOPICAL JELLY (Urojet) TP ONE (06:44)
[2023-06-09] MEDS: LidoCAINE 2% Topical Jelly 11mL syringe (UROJET) TOP ONE (07:16)
[2023-06-09] MEDS ORDERED: pantoprazole 40mg Tablet.DR PO SCH (07:30)
[2023-06-09] MEDS: aspirin 81mg tab.chew PO SCH (09:10)
[2023-06-09] MEDS: heparin, porcine 5000 units/ml vial SQ SCH (09:11)
[2023-06-09] MEDS: pantoprazole 40 MG vial IV SCH (09:48)
[2023-06-09] MEDS: piperacillin/tazo 4.5gm/100ml 100 ML IV SCH (09:48)
[2023-06-09] MEDS: insulin Lispro (HumaLOG) vial - multi-dose SQ SCH (09:52)
[2023-06-09] MEDS ORDERED: LISI5TAB22 PO (10:32)
[2023-06-09] MEDS ORDERED: ALBU18HF2 INH (10:32)
[2023-06-09] MEDS ORDERED: CARV3.123 PO (10:32)
[2023-06-09] MEDS ORDERED: LANTUS SQ (10:32)
[2023-06-09] MEDS ORDERED: POTA8TAB69 PO (10:32)
[2023-06-09] MEDS ORDERED: HYDR50TA65 PO (10:32)
[2023-06-09] MEDS ORDERED: MECL-302 PO (10:32)
[2023-06-09] MEDS ORDERED: FURO20TA4 PO (10:32)
[2023-06-09] MEDS: insulin glargine (Lantus) pen - multi-dose SQ SCH (19:55)
[2023-06-09] MEDS: amiodarone 150mg/dext, iso-os 100 ML IV ONE (23:37)
[2023-06-09] MEDS: amiodarone/D5 360MG/200ML BAG 200 ML IV SCH (23:44)
[2023-06-09] MEDS: VANCOMYCIN 1,500MG in normal saline IV soln 300 ML IV ONE (23:58)
[2023-06-10] VITALS (36 sets, daily range): BP systolic 74–131; BP diastolic 45–87; PULSE 67–78; RESP 15–22; O2SAT 14–100
[2023-06-10] MEDS: Insulin Reg/NS 100units/100mL 100 ML IV SCH (00:07)
[2023-06-10 00:14] LABS: ABG HCO3 19.4 mmol/L (22.0-26.0); ABG OXYGEN SATURATION 99.7 % (94-97); ABG PCO2 (T) 33.6 mmHg (32.0-45.0); ABG PH (T) 7.377 (7.350-7.450); ABG PO2 (T) 395.9 mmHg (75.0-100.0); ALLEN'S TEST Modified; FCOHb 1.3 % (0.0-3.9); FHHb 0.3 % (0.0-5.0); FMetHb 0.2 % (0.0-1.5); FO2Hb 98.2 % (94-97); MODE PRVC; PATIENT TEMPERATURE 36.2; PEEP 5 cm H2O; RESPIRATORY RATE 16 b/min; TIDAL VOLUME 400 mL; TOTAL HEMOGLOBIN 16.3 G/dl (12.0-16.0)
[2023-06-10] MEDS: DOBUTamine-DoBUTrex 500mg/D5W 250 ML IV PRN (01:05)
[2023-06-10] MEDS: insulin Lispro (HumaLOG) vial - multi-dose SQ SCH (01:14)
[2023-06-10 02:08] LABS: BASOPHILS # (AUTO) 0.1 X10'3 (0-0.2); BASOPHILS % (AUTO) 0.7 % (0-1); EOSINOPHILS % (AUTO) 0.3 % (0-6); HEMATOCRIT 43.9 % (35.0-45.0); HEMOGLOBIN 13.8 g/dl (12.0-16.0); LYMPHOCYTES # (AUTO) 1.7 X10'3 (1.1-4.8); LYMPHOCYTES % (AUTO) 23.3 % (21-51); MEAN CORPUSCULAR HEMOGLOBIN 27.1 PG (27.0-31.0); MEAN CORPUSCULAR HGB CONC 31.4 g/dL (33.0-36.5); MEAN CORPUSCULAR VOLUME 86.2 FL (78-98); MEAN PLATELET VOLUME 10.2 FL (7.4-10.4); MONOCYTES # (AUTO) 0.4 X10'3 (0-0.9); MONOCYTES % (AUTO) 5.8 % (2-12); NEUTROPHILS # (AUTO) 5.1 X10'3 (1.8-7.7); NEUTROPHILS % (AUTO) 69.9 % (42-75); PLATELET COUNT 140 X10'3 (140-440); RED BLOOD COUNT 5.08 X10'6 (4.20-5.60); RED CELL DISTRIBUTION WIDTH 16.4 % (11.5-14.5); WHITE BLOOD COUNT 7.3 X10'3 (4.5-11.0)
[2023-06-10 02:23] LABS: INR 1.1 INR
[2023-06-10] MEDS ORDERED: amiodarone 50MG/ML inj IV ONE (02:25)
[2023-06-10 02:26] LABS: ALANINE AMINOTRANSFERASE 131 U/L (12-78); ALBUMIN 2.3 G/DL (3.4-5.0); ALBUMIN/GLOBULIN RATIO 0.7 (1.1-1.5); ALKALINE PHOSPHATASE 170 IU/L (46-116); ANION GAP 9 (8-16); ASPARTATE AMINO TRANSFERASE 100 U/L (10-37); BILIRUBIN,TOTAL 0.8 MG/DL (0.1-1.0); BLOOD UREA NITROGEN 28 MG/DL (7-18); BUN/CREATININE RATIO 19.7 (10.0-20.0); CALCIUM 7.8 MG/DL (8.5-10.1); CHLORIDE 107 MMOL/L (99-107); CREATININE 1.42 MG/DL (0.40-0.90); GLUCOSE 332 MG/DL (70-104); PHOSPHORUS 4.4 MG/DL (2.3-4.5); POTASSIUM 3.3 MMOL/L (3.5-5.1); SODIUM 142 MMOL/L (135-145); TOTAL CARBON DIOXIDE 26.2 MMOL/L (24-32); TOTAL PROTEIN 5.6 G/DL (6.4-8.2); eCRCL 46 ML/MIN; eGFR 39 ML/MIN
[2023-06-10 02:33] LABS: APTT 25 SECONDS (22-32); PROTHROMBIN TIME 12.1 SECONDS (9.0-12.0)
[2023-06-10] MEDS: amiodarone 150mg/dext, iso-os 100 ML IV ONE (02:37)
[2023-06-10] MEDS ORDERED: magnesium 2GM in 50ml NS 50 ML IV PRN (03:10)
[2023-06-10] MEDS ORDERED: potassium Cl 20 mEq SR tablet PO PRN (03:10)
[2023-06-10] MEDS ORDERED: magnesium 4gm in 100ml NS 100 ML IV PRN (03:10)
[2023-06-10] MEDS: potassium Cl 40MEQ/270ML bag 270 ML IV PRN (03:33)
[2023-06-10] MEDS: K and/or MAG REPLACEMENT MC SCH (08:00)
[2023-06-10] MEDS: magnesium 2GM in 50ml NS 50 ML IV ONE (09:53)
[2023-06-10] MEDS: dextrose 50%-water 50ml dispensing syringe IV PRN (11:05)
[2023-06-10 11:15] LABS: ABG HCO3 22.8 mmol/L (22.0-26.0); ABG OXYGEN SATURATION 92.8 % (94-97); ABG PCO2 (T) 40.8 mmHg (32.0-45.0); ABG PH (T) 7.359 (7.350-7.450); ABG PO2 (T) 60.8 mmHg (75.0-100.0); FCOHb 1.1 % (0.0-3.9); FHHb 7.1 % (0.0-5.0); FO2Hb 91.8 % (94-97); MODE VENT - AC/PRVC; PATIENT TEMPERATURE 35.7; PEEP 5 cm H2O; RESPIRATORY RATE 16 b/min; TIDAL VOLUME 400 mL; TOTAL HEMOGLOBIN 14.3 G/dl (12.0-16.0)
[2023-06-10 11:25] LABS: OXYGEN SATURATION (MIXED VEN) 67.7 % (60-80)
[2023-06-10] MEDS ORDERED: vancomycin/NS 1 GM ADD-VANTAGE 250 ML IV SCH (12:00)
[2023-06-10 13:57] LABS: PREALBUMIN 19.5 MG/DL (19-36)
[2023-06-10] MEDS: Dextrose 10%-water IV solution 1,000 ML IV SCH (16:40)
[2023-06-10] MEDS: furosemide 10 MG/1 ML 10ml inj IV ONE (17:22)
[2023-06-11] VITALS (39 sets, daily range): BP systolic 90–133; BP diastolic 44–72; PULSE 73–87; RESP 9–27; O2SAT 76–100
[2023-06-11 02:48] LABS: BASOPHILS % (AUTO) 0.3 % (0-1); EOSINOPHILS # (AUTO) 0.1 X10'3 (0-0.9); EOSINOPHILS % (AUTO) 0.8 % (0-6); HEMATOCRIT 42.1 % (35.0-45.0); HEMOGLOBIN 13.1 g/dl (12.0-16.0); LYMPHOCYTES # (AUTO) 1.4 X10'3 (1.1-4.8); LYMPHOCYTES % (AUTO) 17.4 % (21-51); MEAN CORPUSCULAR HEMOGLOBIN 26.4 PG (27.0-31.0); MEAN CORPUSCULAR HGB CONC 31.1 g/dL (33.0-36.5); MEAN CORPUSCULAR VOLUME 84.9 FL (78-98); MEAN PLATELET VOLUME 10.1 FL (7.4-10.4); MONOCYTES # (AUTO) 0.6 X10'3 (0-0.9); MONOCYTES % (AUTO) 7.6 % (2-12); NEUTROPHILS # (AUTO) 6.1 X10'3 (1.8-7.7); NEUTROPHILS % (AUTO) 73.9 % (42-75); PLATELET COUNT 137 X10'3 (140-440); RED BLOOD COUNT 4.96 X10'6 (4.20-5.60); RED CELL DISTRIBUTION WIDTH 16.4 % (11.5-14.5); WHITE BLOOD COUNT 8.3 X10'3 (4.5-11.0)
[2023-06-11 03:01] LABS: APTT 25 SECONDS (22-32); INR 1.1 INR; PROTHROMBIN TIME 11.8 SECONDS (9.0-12.0)
[2023-06-11 03:03] LABS: ALANINE AMINOTRANSFERASE 93 U/L (12-78); ALBUMIN 2.4 G/DL (3.4-5.0); ALBUMIN/GLOBULIN RATIO 0.7 (1.1-1.5); ALKALINE PHOSPHATASE 124 IU/L (46-116); ANION GAP 10 (8-16); ASPARTATE AMINO TRANSFERASE 53 U/L (10-37); BILIRUBIN,TOTAL 0.7 MG/DL (0.1-1.0); BLOOD UREA NITROGEN 21 MG/DL (7-18); BUN/CREATININE RATIO 15.9 (10.0-20.0); CALCIUM 8.4 MG/DL (8.5-10.1); CHLORIDE 106 MMOL/L (99-107); CREATININE 1.32 MG/DL (0.40-0.90); GLUCOSE 237 MG/DL (70-104); MAGNESIUM 1.8 MG/DL (1.5-2.4); PHOSPHORUS 3.4 MG/DL (2.3-4.5); POTASSIUM 3.5 MMOL/L (3.5-5.1); SODIUM 141 MMOL/L (135-145); TOTAL CARBON DIOXIDE 24.6 MMOL/L (24-32); TOTAL PROTEIN 5.7 G/DL (6.4-8.2); eCRCL 49 ML/MIN; eGFR 42 ML/MIN
[2023-06-11 03:22] LABS: ABG BASE EXCESS 0.4 mmol/L (-2.0-2.0); ABG HCO3 25.4 mmol/L (22.0-26.0); ABG PCO2 (T) 42.3 mmHg (32.0-45.0); ABG PH (T) 7.396 (7.350-7.450); ABG PO2 (T) 126.7 mmHg (75.0-100.0); FCOHb 1.1 % (0.0-3.9); FMetHb 0.1 % (0.0-1.5); FO2Hb 97.8 % (94-97); MODE prvc; PATIENT TEMPERATURE 36.9; PEEP 5 cm H2O; RESPIRATORY RATE 16 b/min; TIDAL VOLUME 400 mL; TOTAL HEMOGLOBIN 14.1 G/dl (12.0-16.0)
[2023-06-11] MEDS: potassium Cl 20mEq/100mL bag 100 ML IV PRN (04:38)
[2023-06-11] MEDS ORDERED: polyethylene glycol 3350 17gm powd pack PO PRN (06:10)
[2023-06-11] MEDS ORDERED: VANCOMYCIN LEVEL IV ONE (11:30)
[2023-06-11] MEDS: furosemide 10 MG/1 ML 10ml inj IV ONE (13:03)
[2023-06-11] MEDS ORDERED: DEXMEDETOMIDINE IN 0.9 % NACL 50 ML IV SCH (16:25)
[2023-06-11] MEDS: dexmedetomidin/NS 400mcg/100ml 100 ML IV SCH (16:55)
[2023-06-11] MEDS: DOBUTamine-DoBUTrex 500mg/D5W 250 ML IV PRN ×2 (17:01→22:07)
[2023-06-11] MEDS: fentaNYL/PF 50MCG/1 ML 2ML syringe ONE (17:05)
[2023-06-11] MEDS: fentaNYL/PF 50MCG/1 ML 2ML syringe IV ONE (17:21)
[2023-06-12] VITALS (42 sets, daily range): BP systolic 89–124; BP diastolic 40–77; PULSE 65–82; RESP 9–30; O2SAT 87–100
[2023-06-12] MEDS: fentaNYL/PF 50MCG/1 ML 2ML syringe IV PRN (00:52)
[2023-06-12] MEDS: LORazepam 2 mg/ml vial IV ONE (02:40)
[2023-06-12 03:10] LABS: BASOPHILS % (AUTO) 0.5 % (0-1); EOSINOPHILS % (AUTO) 0.7 % (0-6); HEMATOCRIT 35.9 % (35.0-45.0); HEMOGLOBIN 11.4 g/dl (12.0-16.0); LYMPHOCYTES # (AUTO) 0.8 X10'3 (1.1-4.8); LYMPHOCYTES % (AUTO) 18.3 % (21-51); MEAN CORPUSCULAR HEMOGLOBIN 26.8 PG (27.0-31.0); MEAN CORPUSCULAR HGB CONC 31.8 g/dL (33.0-36.5); MEAN CORPUSCULAR VOLUME 84.3 FL (78-98); MEAN PLATELET VOLUME 10.1 FL (7.4-10.4); MONOCYTES # (AUTO) 0.4 X10'3 (0-0.9); MONOCYTES % (AUTO) 9.2 % (2-12); NEUTROPHILS # (AUTO) 3.1 X10'3 (1.8-7.7); NEUTROPHILS % (AUTO) 71.3 % (42-75); PLATELET COUNT 100 X10'3 (140-440); RED BLOOD COUNT 4.26 X10'6 (4.20-5.60); WHITE BLOOD COUNT 4.4 X10'3 (4.5-11.0)
[2023-06-12 03:12] LABS: APTT 27 SECONDS (22-32); PROTHROMBIN TIME 11.1 SECONDS (9.0-12.0)
[2023-06-12 03:18] LABS: ALANINE AMINOTRANSFERASE 66 U/L (12-78); ALBUMIN/GLOBULIN RATIO 0.6 (1.1-1.5); ALKALINE PHOSPHATASE 114 IU/L (46-116); ANION GAP 9 (8-16); ASPARTATE AMINO TRANSFERASE 34 U/L (10-37); BILIRUBIN,TOTAL 0.8 MG/DL (0.1-1.0); BLOOD UREA NITROGEN 20 MG/DL (7-18); CALCIUM 8.5 MG/DL (8.5-10.1); CHLORIDE 104 MMOL/L (99-107); CREATININE 1.43 MG/DL (0.40-0.90); GLUCOSE 215 MG/DL (70-104); MAGNESIUM 1.6 MG/DL (1.5-2.4); PHOSPHORUS 3.1 MG/DL (2.3-4.5); POTASSIUM 4.2 MMOL/L (3.5-5.1); SODIUM 141 MMOL/L (135-145); TOTAL CARBON DIOXIDE 28.1 MMOL/L (24-32); TOTAL PROTEIN 5.4 G/DL (6.4-8.2); eCRCL 45 ML/MIN; eGFR 39 ML/MIN
[2023-06-12 03:29] LABS: ABG BASE EXCESS 1.9 mmol/L (-2.0-2.0); ABG HCO3 23.7 mmol/L (22.0-26.0); ABG OXYGEN SATURATION 99.6 % (94-97); ABG PCO2 (T) 30.1 mmHg (32.0-45.0); ABG PH (T) 7.517 (7.350-7.450); ABG PO2 (T) 158.7 mmHg (75.0-100.0); ALLEN'S TEST Modified; FCOHb 0.9 % (0.0-3.9); FHHb 0.4 % (0.0-5.0); FO2Hb 98.7 % (94-97); MODE spont 10/5; PATIENT TEMPERATURE 37.9; TOTAL HEMOGLOBIN 12.9 G/dl (12.0-16.0)
[2023-06-12] MEDS: magnesium 4gm in 100ml NS 100 ML IV PRN (04:05)
[2023-06-12] MEDS: DOBUTamine-DoBUTrex 500mg/D5W 250 ML IV PRN (05:12)
[2023-06-12] MEDS: amiodarone/D5 360MG/200ML BAG 200 ML IV SCH (05:45)
[2023-06-12] MEDS: amiodarone 150mg/dext, iso-os 100 ML IV ONE ×2 (05:51→20:42)
[2023-06-12] MEDS: furosemide 10 MG/1 ML 10ml inj IV ONE (07:46)
[2023-06-12] MEDS: insulin regular, human U-100 3ml vial - multi-dose SQ SCH (10:23)
[2023-06-12 10:42] LABS: MAGNESIUM 2.6 MG/DL (1.5-2.4); POTASSIUM 5.1 MMOL/L (3.5-5.1)
[2023-06-12] MEDS: insulin Lispro (HumaLOG) vial - multi-dose SQ SCH (14:51)
[2023-06-12] MEDS: amiodarone 150mg/dext, iso-os 0 ML IV ONE (20:42)
[2023-06-12] MEDS: insulin glargine (Lantus) pen - multi-dose SQ SCH (20:48)
[2023-06-12 20:57] LABS: BASOPHILS % (AUTO) 0.6 % (0-1); EOSINOPHILS % (AUTO) 0.6 % (0-6); HEMATOCRIT 37.8 % (35.0-45.0); LYMPHOCYTES # (AUTO) 1.1 X10'3 (1.1-4.8); LYMPHOCYTES % (AUTO) 18.4 % (21-51); MEAN CORPUSCULAR HEMOGLOBIN 26.8 PG (27.0-31.0); MEAN CORPUSCULAR HGB CONC 31.8 g/dL (33.0-36.5); MEAN CORPUSCULAR VOLUME 84.2 FL (78-98); MEAN PLATELET VOLUME 9.9 FL (7.4-10.4); MONOCYTES # (AUTO) 0.5 X10'3 (0-0.9); MONOCYTES % (AUTO) 8.7 % (2-12); NEUTROPHILS # (AUTO) 4.1 X10'3 (1.8-7.7); NEUTROPHILS % (AUTO) 71.7 % (42-75); PLATELET COUNT 116 X10'3 (140-440); RED BLOOD COUNT 4.49 X10'6 (4.20-5.60); WHITE BLOOD COUNT 5.8 X10'3 (4.5-11.0)
[2023-06-12 21:06] LABS: ALBUMIN 2.2 G/DL (3.4-5.0); ANION GAP 8 (8-16); BLOOD UREA NITROGEN 22 MG/DL (7-18); BUN/CREATININE RATIO 14.2 (10.0-20.0); CALCIUM 9.2 MG/DL (8.5-10.1); CHLORIDE 101 MMOL/L (99-107); CREATININE 1.55 MG/DL (0.40-0.90); GLUCOSE 205 MG/DL (70-104); MAGNESIUM 1.9 MG/DL (1.5-2.4); PHOSPHORUS 3.6 MG/DL (2.3-4.5); POTASSIUM 3.8 MMOL/L (3.5-5.1); SODIUM 139 MMOL/L (135-145); TOTAL CARBON DIOXIDE 29.8 MMOL/L (24-32); eCRCL 42 ML/MIN; eGFR 35 ML/MIN
[2023-06-12] MEDS: LIDOcaine 2 gm/250ml D5W 250 ML IV SCH (21:26)
[2023-06-13] VITALS (45 sets, daily range): BP systolic 76–132; BP diastolic 50–82; PULSE 57–81; RESP 12–26; O2SAT 82–100
[2023-06-13 00:03] LABS: ABG BASE EXCESS 1.7 mmol/L (-2.0-2.0); ABG HCO3 26.6 mmol/L (22.0-26.0); ABG OXYGEN SATURATION 98.6 % (94-97); ABG PH (T) 7.403 (7.350-7.450); ABG PO2 (T) 124.7 mmHg (75.0-100.0); ALLEN'S TEST Modified; FCOHb 0.6 % (0.0-3.9); FHHb 1.4 % (0.0-5.0); FMetHb 0.3 % (0.0-1.5); FO2Hb 97.7 % (94-97); MODE bipap 10/5; PATIENT TEMPERATURE 37.5; RESPIRATORY RATE 10 b/min; TOTAL HEMOGLOBIN 13.2 G/dl (12.0-16.0)
[2023-06-13] MEDS: dexmedetomidine inj. 1,000 MCG in normal saline 250ml IV soln 240 ML IV SCH (01:39)
[2023-06-13 02:27] LABS: BASOPHILS % (AUTO) 0.4 % (0-1); EOSINOPHILS % (AUTO) 0.6 % (0-6); HEMATOCRIT 40.5 % (35.0-45.0); HEMOGLOBIN 12.8 g/dl (12.0-16.0); LYMPHOCYTES # (AUTO) 1.3 X10'3 (1.1-4.8); LYMPHOCYTES % (AUTO) 22.1 % (21-51); MEAN CORPUSCULAR HEMOGLOBIN 26.8 PG (27.0-31.0); MEAN CORPUSCULAR HGB CONC 31.6 g/dL (33.0-36.5); MEAN CORPUSCULAR VOLUME 84.8 FL (78-98); MEAN PLATELET VOLUME 10.7 FL (7.4-10.4); MONOCYTES # (AUTO) 0.6 X10'3 (0-0.9); MONOCYTES % (AUTO) 9.2 % (2-12); NEUTROPHILS # (AUTO) 4.1 X10'3 (1.8-7.7); NEUTROPHILS % (AUTO) 67.7 % (42-75); PLATELET COUNT 133 X10'3 (140-440); RED BLOOD COUNT 4.78 X10'6 (4.20-5.60); RED CELL DISTRIBUTION WIDTH 15.8 % (11.5-14.5); WHITE BLOOD COUNT 6.1 X10'3 (4.5-11.0)
[2023-06-13 02:36] LABS: APTT 27 SECONDS (22-32)
[2023-06-13 02:38] LABS: PROTHROMBIN TIME 10.9 SECONDS (9.0-12.0)
[2023-06-13 02:39] LABS: ALANINE AMINOTRANSFERASE 64 U/L (12-78); ALBUMIN 2.2 G/DL (3.4-5.0); ALBUMIN/GLOBULIN RATIO 0.6 (1.1-1.5); ALKALINE PHOSPHATASE 137 IU/L (46-116); ANION GAP 7 (8-16); ASPARTATE AMINO TRANSFERASE 40 U/L (10-37); BILIRUBIN,TOTAL 0.6 MG/DL (0.1-1.0); BLOOD UREA NITROGEN 23 MG/DL (7-18); CALCIUM 9.2 MG/DL (8.5-10.1); CHLORIDE 101 MMOL/L (99-107); CREATININE 1.64 MG/DL (0.40-0.90); GLUCOSE 185 MG/DL (70-104); MAGNESIUM 3.7 MG/DL (1.5-2.4); PHOSPHORUS 4.5 MG/DL (2.3-4.5); POTASSIUM 4.8 MMOL/L (3.5-5.1); SODIUM 137 MMOL/L (135-145); TOTAL CARBON DIOXIDE 29.1 MMOL/L (24-32); TOTAL PROTEIN 5.9 G/DL (6.4-8.2); eCRCL 39 ML/MIN; eGFR 33 ML/MIN
[2023-06-13] MEDS: acetaminophen 1,000mg/100ml IV 100 ML IV PRN (05:36)
[2023-06-13 06:00] LABS: BILIRUBIN,URINE SMALL (Neg); CLARITY,URINE CLOUDY (Clear); COLOR,URINE AMBER (Yellow); GLUCOSE, URINE NEGATIVE (Neg); KETONES,URINE TRACE mg/dl (Neg); LEUKOCYTE ESTERASE ,URINE TRACE (Neg); NITRITES, URINE NEGATIVE (Neg); OCCULT BLOOD,URINE LARGE (Neg); PH,URINE 5.5 (4.8-8.0); PROTEIN,URINE 30 mg/dl (Neg); UROBILINOGEN,URINE 0.2 E.U/dL (0.2-1.0)
[2023-06-13 06:06] LABS: UA COLLECTION TYPE FOLEY CATH
[2023-06-13 06:08] LABS: SQUAMOUS EPITHELIAL CELL,UR NONE SEEN /LPF (FEW)
[2023-06-13 06:09] LABS: WBC,URINE 20-30 /HPF (0-4)
[2023-06-13 06:10] LABS: BACTERIA,URINE 3+ /HPF (Neg); RBC,URINE TNTC /HPF (0-2); URIC ACID CRYSTALS 2+ /HPF (NEGATIVE)
[2023-06-13] MEDS: DOBUTamine-DoBUTrex 500mg/D5W 250 ML IV ONE (07:30)
[2023-06-13] MEDS: milrinone (Primacor) 20mg/D5W 100 ML IV SCH (07:48)
[2023-06-13] MEDS: DOBUTamine-DoBUTrex 500mg/D5W 250 ML IV SCH (17:18)
[2023-06-14] VITALS (57 sets, daily range): BP systolic 112–152; BP diastolic 66–99; PULSE 69–89; RESP 11–31; O2SAT 80–100
[2023-06-14 02:53] LABS: BASOPHILS % (AUTO) 0.5 % (0-1); EOSINOPHILS # (AUTO) 0.1 X10'3 (0-0.9); EOSINOPHILS % (AUTO) 1.3 % (0-6); HEMATOCRIT 36.8 % (35.0-45.0); LYMPHOCYTES # (AUTO) 1.1 X10'3 (1.1-4.8); LYMPHOCYTES % (AUTO) 22.3 % (21-51); MEAN CORPUSCULAR HEMOGLOBIN 27.3 PG (27.0-31.0); MEAN CORPUSCULAR HGB CONC 32.5 g/dL (33.0-36.5); MEAN CORPUSCULAR VOLUME 83.8 FL (78-98); MEAN PLATELET VOLUME 9.8 FL (7.4-10.4); MONOCYTES # (AUTO) 0.4 X10'3 (0-0.9); MONOCYTES % (AUTO) 8.9 % (2-12); NEUTROPHILS # (AUTO) 3.3 X10'3 (1.8-7.7); PLATELET COUNT 129 X10'3 (140-440); RED BLOOD COUNT 4.39 X10'6 (4.20-5.60); RED CELL DISTRIBUTION WIDTH 15.6 % (11.5-14.5); WHITE BLOOD COUNT 4.9 X10'3 (4.5-11.0)
[2023-06-14 02:57] LABS: APTT 26 SECONDS (22-32); INR 1.2 INR; PROTHROMBIN TIME 12.6 SECONDS (9.0-12.0)
[2023-06-14 03:03] LABS: ALANINE AMINOTRANSFERASE 83 U/L (12-78); ALBUMIN 2.1 G/DL (3.4-5.0); ALBUMIN/GLOBULIN RATIO 0.6 (1.1-1.5); ALKALINE PHOSPHATASE 134 IU/L (46-116); ANION GAP 9 (8-16); ASPARTATE AMINO TRANSFERASE 88 U/L (10-37); BILIRUBIN,TOTAL 0.7 MG/DL (0.1-1.0); BLOOD UREA NITROGEN 21 MG/DL (7-18); BUN/CREATININE RATIO 15.4 (10.0-20.0); CALCIUM 9.1 MG/DL (8.5-10.1); CHLORIDE 100 MMOL/L (99-107); CREATININE 1.36 MG/DL (0.40-0.90); GLUCOSE 165 MG/DL (70-104); PHOSPHORUS 3.5 MG/DL (2.3-4.5); PREALBUMIN 14.4 MG/DL (19-36); SODIUM 137 MMOL/L (135-145); TOTAL CARBON DIOXIDE 27.6 MMOL/L (24-32); TOTAL PROTEIN 5.8 G/DL (6.4-8.2); eCRCL 48 ML/MIN; eGFR 41 ML/MIN
[2023-06-14 03:07] LABS: POTASSIUM 3.8 MMOL/L (3.5-5.1)
[2023-06-14] MEDS: potassium Cl 40MEQ/270ML bag 250 ML IV PRN (04:40)
[2023-06-14] MEDS: furosemide 10 MG/1 ML 10ml inj IV ONE ×2 (11:04→20:00)
[2023-06-14] MEDS: lactose-reduced food (Ensure Enlive) - 237ml bottle PO SCH (13:00)
[2023-06-14] MEDS: acetaminophen 325mg tablet PO PRN (21:19)
[2023-06-15] VITALS (32 sets, daily range): BP systolic 122–147; BP diastolic 74–97; PULSE 63–79; RESP 11–31; O2SAT 88–100
[2023-06-15 02:48] LABS: APTT 26 SECONDS (22-32); INR 1.1 INR; PROTHROMBIN TIME 12.2 SECONDS (9.0-12.0)
[2023-06-15 02:50] LABS: ALANINE AMINOTRANSFERASE 111 U/L (12-78); ALBUMIN 2.3 G/DL (3.4-5.0); ALBUMIN/GLOBULIN RATIO 0.6 (1.1-1.5); ALKALINE PHOSPHATASE 152 IU/L (46-116); ANION GAP 9 (8-16); ASPARTATE AMINO TRANSFERASE 93 U/L (10-37); BILIRUBIN,TOTAL 0.6 MG/DL (0.1-1.0); BLOOD UREA NITROGEN 23 MG/DL (7-18); BUN/CREATININE RATIO 18.7 (10.0-20.0); CALCIUM 9.3 MG/DL (8.5-10.1); CHLORIDE 102 MMOL/L (99-107); CREATININE 1.23 MG/DL (0.40-0.90); GLUCOSE 126 MG/DL (70-104); MAGNESIUM 1.7 MG/DL (1.5-2.4); PHOSPHORUS 3.2 MG/DL (2.3-4.5); POTASSIUM 3.4 MMOL/L (3.5-5.1); SODIUM 140 MMOL/L (135-145); TOTAL CARBON DIOXIDE 29.1 MMOL/L (24-32); TOTAL PROTEIN 6.2 G/DL (6.4-8.2); eCRCL 53 ML/MIN; eGFR 46 ML/MIN
[2023-06-15 03:01] LABS: BASOPHILS % (AUTO) 0.6 % (0-1); EOSINOPHILS # (AUTO) 0.2 X10'3 (0-0.9); EOSINOPHILS % (AUTO) 2.3 % (0-6); HEMATOCRIT 41.4 % (35.0-45.0); LYMPHOCYTES # (AUTO) 1.4 X10'3 (1.1-4.8); LYMPHOCYTES % (AUTO) 20.7 % (21-51); MEAN CORPUSCULAR HEMOGLOBIN 26.4 PG (27.0-31.0); MEAN CORPUSCULAR HGB CONC 31.5 g/dL (33.0-36.5); MEAN CORPUSCULAR VOLUME 83.6 FL (78-98); MEAN PLATELET VOLUME 9.8 FL (7.4-10.4); MONOCYTES # (AUTO) 0.7 X10'3 (0-0.9); MONOCYTES % (AUTO) 10.1 % (2-12); NEUTROPHILS # (AUTO) 4.6 X10'3 (1.8-7.7); NEUTROPHILS % (AUTO) 66.3 % (42-75); PLATELET COUNT 179 X10'3 (140-440); RED BLOOD COUNT 4.95 X10'6 (4.20-5.60); RED CELL DISTRIBUTION WIDTH 15.9 % (11.5-14.5)
[2023-06-15] MEDS: magnesium 2GM in 50ml NS 50 ML IV PRN (07:09)
[2023-06-15] MEDS ORDERED: fentaNYL/PF 50MCG/1 ML 2ML syringe ONE (13:52)
[2023-06-15] MEDS ORDERED: LIDOcaine 1% (10mg/ml) 2ml vial ONE (13:52)
[2023-06-15] MEDS ORDERED: iohexol 350MG/ML 100ml bottle IV ONE (13:52)
[2023-06-15] MEDS ORDERED: heparin 1,000unit/ml 10ml vial 10 ML ONE (13:52)
[2023-06-15] MEDS ORDERED: midazolam 1 mg/ML 2ml injection ONE (13:52)
[2023-06-15] MEDS ORDERED: verapamil 2.5 mg/ml inj IV ONE (13:52)
[2023-06-15] MEDS ORDERED: proCHLORperazine 10 MG/2 ml inj IV PRN (14:10)
[2023-06-15] MEDS ORDERED: HYDROcodone/acetaminophen 5mg/325mg tablet PO PRN (14:10)
[2023-06-15] MEDS ORDERED: HYDROcodone/acetaminophen 10/325mg tab PO PRN (14:10)
[2023-06-15] MEDS ORDERED: ondansetron/PF 4mg/2ml inj IV PRN (14:10)
[2023-06-16] VITALS (44 sets, daily range): BP systolic 121–150; BP diastolic 64–93; PULSE 67–79; RESP 12–29; O2SAT 83–100
[2023-06-16 02:48] LABS: BASOPHILS # (AUTO) 0.1 X10'3 (0-0.2); BASOPHILS % (AUTO) 0.8 % (0-1); EOSINOPHILS # (AUTO) 0.2 X10'3 (0-0.9); EOSINOPHILS % (AUTO) 2.5 % (0-6); HEMATOCRIT 40.8 % (35.0-45.0); HEMOGLOBIN 13.1 g/dl (12.0-16.0); LYMPHOCYTES # (AUTO) 1.7 X10'3 (1.1-4.8); LYMPHOCYTES % (AUTO) 20.1 % (21-51); MEAN CORPUSCULAR HEMOGLOBIN 26.9 PG (27.0-31.0); MEAN CORPUSCULAR HGB CONC 32.1 g/dL (33.0-36.5); MEAN CORPUSCULAR VOLUME 83.9 FL (78-98); MEAN PLATELET VOLUME 9.6 FL (7.4-10.4); MONOCYTES # (AUTO) 0.8 X10'3 (0-0.9); MONOCYTES % (AUTO) 9.1 % (2-12); NEUTROPHILS # (AUTO) 5.7 X10'3 (1.8-7.7); NEUTROPHILS % (AUTO) 67.5 % (42-75); PLATELET COUNT 194 X10'3 (140-440); RED BLOOD COUNT 4.86 X10'6 (4.20-5.60); RED CELL DISTRIBUTION WIDTH 16.1 % (11.5-14.5); WHITE BLOOD COUNT 8.4 X10'3 (4.5-11.0)
[2023-06-16 02:57] LABS: APTT 26 SECONDS (22-32); INR 1.1 INR; PROTHROMBIN TIME 11.4 SECONDS (9.0-12.0)
[2023-06-16 02:59] LABS: ALANINE AMINOTRANSFERASE 131 U/L (12-78); ALBUMIN 2.3 G/DL (3.4-5.0); ALBUMIN/GLOBULIN RATIO 0.6 (1.1-1.5); ALKALINE PHOSPHATASE 190 IU/L (46-116); ANION GAP 8 (8-16); ASPARTATE AMINO TRANSFERASE 89 U/L (10-37); BILIRUBIN,TOTAL 0.5 MG/DL (0.1-1.0); BLOOD UREA NITROGEN 25 MG/DL (7-18); BUN/CREATININE RATIO 25.8 (10.0-20.0); CALCIUM 9.1 MG/DL (8.5-10.1); CHLORIDE 104 MMOL/L (99-107); CREATININE 0.97 MG/DL (0.40-0.90); GLUCOSE 99 MG/DL (70-104); MAGNESIUM 2.3 MG/DL (1.5-2.4); PHOSPHORUS 2.7 MG/DL (2.3-4.5); POTASSIUM 4.1 MMOL/L (3.5-5.1); SODIUM 141 MMOL/L (135-145); TOTAL CARBON DIOXIDE 29.5 MMOL/L (24-32); TOTAL PROTEIN 6.1 G/DL (6.4-8.2); eCRCL 67 ML/MIN; eGFR 61 ML/MIN
[2023-06-16] MEDS: amiodarone 200mg tablet PO SCH (09:38)
[2023-06-16] MEDS: furosemide 40mg/4ml inj IV SCH (12:11)
[2023-06-16] MEDS: dextrose 50%-water 50ml dispensing syringe IV PRN (16:44)
[2023-06-16] MEDS: LIDOcaine 2 gm/250ml D5W 250 ML IV SCH (16:49)
[2023-06-17] VITALS (38 sets, daily range): BP systolic 124–144; BP diastolic 74–100; PULSE 71–91; RESP 12–26; O2SAT 93–100
[2023-06-17 03:19] LABS: BASOPHILS # (AUTO) 0.1 X10'3 (0-0.2); BASOPHILS % (AUTO) 0.8 % (0-1); EOSINOPHILS # (AUTO) 0.2 X10'3 (0-0.9); EOSINOPHILS % (AUTO) 2.6 % (0-6); HEMOGLOBIN 13.8 g/dl (12.0-16.0); LYMPHOCYTES # (AUTO) 2.2 X10'3 (1.1-4.8); LYMPHOCYTES % (AUTO) 28.2 % (21-51); MEAN CORPUSCULAR HEMOGLOBIN 26.5 PG (27.0-31.0); MEAN CORPUSCULAR HGB CONC 31.2 g/dL (33.0-36.5); MEAN CORPUSCULAR VOLUME 84.7 FL (78-98); MONOCYTES # (AUTO) 0.6 X10'3 (0-0.9); MONOCYTES % (AUTO) 8.3 % (2-12); NEUTROPHILS # (AUTO) 4.6 X10'3 (1.8-7.7); NEUTROPHILS % (AUTO) 60.1 % (42-75); PLATELET COUNT 219 X10'3 (140-440); RED CELL DISTRIBUTION WIDTH 16.1 % (11.5-14.5); WHITE BLOOD COUNT 7.7 X10'3 (4.5-11.0)
[2023-06-17 03:28] LABS: APTT 25 SECONDS (22-32); PROTHROMBIN TIME 10.9 SECONDS (9.0-12.0)
[2023-06-17 03:39] LABS: ALANINE AMINOTRANSFERASE 123 U/L (12-78); ALBUMIN 2.5 G/DL (3.4-5.0); ALBUMIN/GLOBULIN RATIO 0.7 (1.1-1.5); ALKALINE PHOSPHATASE 182 IU/L (46-116); ANION GAP 9 (8-16); ASPARTATE AMINO TRANSFERASE 80 U/L (10-37); BILIRUBIN,TOTAL 0.7 MG/DL (0.1-1.0); BLOOD UREA NITROGEN 25 MG/DL (7-18); BUN/CREATININE RATIO 26.3 (10.0-20.0); CALCIUM 9.1 MG/DL (8.5-10.1); CHLORIDE 103 MMOL/L (99-107); CREATININE 0.95 MG/DL (0.40-0.90); GLUCOSE 93 MG/DL (70-104); MAGNESIUM 1.9 MG/DL (1.5-2.4); PHOSPHORUS 3.6 MG/DL (2.3-4.5); POTASSIUM 4.1 MMOL/L (3.5-5.1); PREALBUMIN 19.1 MG/DL (19-36); SODIUM 142 MMOL/L (135-145); TOTAL CARBON DIOXIDE 30.3 MMOL/L (24-32); TOTAL PROTEIN 6.3 G/DL (6.4-8.2); eCRCL 68 ML/MIN; eGFR 62 ML/MIN
[2023-06-17] MEDS: clopidogrel 300mg tablet PO ONE (14:15)
[2023-06-18] VITALS (33 sets, daily range): BP systolic 111–143; BP diastolic 68–93; PULSE 61–108; RESP 11–26; O2SAT 88–100
[2023-06-18 04:54] LABS: BASOPHILS # (AUTO) 0.1 X10'3 (0-0.2); EOSINOPHILS # (AUTO) 0.1 X10'3 (0-0.9); EOSINOPHILS % (AUTO) 2.3 % (0-6); HEMATOCRIT 41.2 % (35.0-45.0); LYMPHOCYTES # (AUTO) 1.4 X10'3 (1.1-4.8); LYMPHOCYTES % (AUTO) 23.7 % (21-51); MEAN CORPUSCULAR HEMOGLOBIN 26.4 PG (27.0-31.0); MEAN CORPUSCULAR HGB CONC 31.5 g/dL (33.0-36.5); MEAN CORPUSCULAR VOLUME 83.9 FL (78-98); MEAN PLATELET VOLUME 8.9 FL (7.4-10.4); MONOCYTES # (AUTO) 0.5 X10'3 (0-0.9); MONOCYTES % (AUTO) 7.7 % (2-12); NEUTROPHILS % (AUTO) 65.3 % (42-75); PLATELET COUNT 210 X10'3 (140-440); RED CELL DISTRIBUTION WIDTH 15.7 % (11.5-14.5); WHITE BLOOD COUNT 6.1 X10'3 (4.5-11.0)
[2023-06-18 05:05] LABS: APTT 25 SECONDS (22-32); PROTHROMBIN TIME 11.1 SECONDS (9.0-12.0)
[2023-06-18 05:09] LABS: ALANINE AMINOTRANSFERASE 94 U/L (12-78); ALBUMIN 2.3 G/DL (3.4-5.0); ALBUMIN/GLOBULIN RATIO 0.6 (1.1-1.5); ALKALINE PHOSPHATASE 172 IU/L (46-116); ANION GAP 7 (8-16); ASPARTATE AMINO TRANSFERASE 41 U/L (10-37); BILIRUBIN,TOTAL 0.7 MG/DL (0.1-1.0); BLOOD UREA NITROGEN 26 MG/DL (7-18); BUN/CREATININE RATIO 23.6 (10.0-20.0); CALCIUM 8.9 MG/DL (8.5-10.1); CHLORIDE 103 MMOL/L (99-107); GLUCOSE 159 MG/DL (70-104); MAGNESIUM 1.6 MG/DL (1.5-2.4); PHOSPHORUS 3.4 MG/DL (2.3-4.5); POTASSIUM 4.1 MMOL/L (3.5-5.1); SODIUM 140 MMOL/L (135-145); TOTAL CARBON DIOXIDE 30.2 MMOL/L (24-32); TOTAL PROTEIN 6.1 G/DL (6.4-8.2); eCRCL 59 ML/MIN; eGFR 52 ML/MIN
[2023-06-18] MEDS: metoprolol succinate 25mg (24-HOUR) SR. Tablet PO SCH (07:52)
[2023-06-18] MEDS ORDERED: LIDOcaine 1% (10mg/ml) 2ml vial ONE (13:14)
[2023-06-18] MEDS ORDERED: nitroGLYCERIN 500mcg/5mL D5W 5 ML IV ONE (13:14)
[2023-06-18] MEDS ORDERED: verapamil 2.5 mg/ml inj IV ONE (13:14)
[2023-06-18] MEDS ORDERED: heparin 1,000unit/ml 10ml vial 10 ML ONE (13:14)
[2023-06-18] MEDS ORDERED: fentaNYL/PF 50MCG/1 ML 2ML syringe ONE (13:14)
[2023-06-18] MEDS ORDERED: iohexol 350MG/ML 100ml bottle IV ONE (13:14)
[2023-06-18] MEDS ORDERED: clopidogrel 300mg tablet ONE (14:53)
[2023-06-18] MEDS ORDERED: proCHLORperazine 10 MG/2 ml inj IV PRN (15:55)
[2023-06-18] MEDS ORDERED: HYDROcodone/acetaminophen 10/325mg tab PO PRN (15:55)
[2023-06-18] MEDS ORDERED: HYDROcodone/acetaminophen 5mg/325mg tablet PO PRN (15:55)
[2023-06-18] MEDS ORDERED: ondansetron/PF 4mg/2ml inj IV PRN (15:55)
[2023-06-19] VITALS (36 sets, daily range): BP systolic 87–154; BP diastolic 47–100; PULSE 62–79; RESP 11–44; O2SAT 48–100
[2023-06-19 02:24] LABS: ABG BASE EXCESS 1.4 mmol/L (-2.0-2.0); ABG HCO3 25.5 mmol/L (22.0-26.0); ABG OXYGEN SATURATION 98.7 % (94-97); ABG PCO2 (T) 38.1 mmHg (32.0-45.0); ABG PH (T) 7.442 (7.350-7.450); ABG PO2 (T) 107.1 mmHg (75.0-100.0); ALLEN'S TEST Modified; FCOHb 1.1 % (0.0-3.9); FHHb 1.3 % (0.0-5.0); FMetHb 0.3 % (0.0-1.5); FO2Hb 97.3 % (94-97); MODE BIPAP; PATIENT TEMPERATURE 36.6; RESPIRATORY RATE 10 b/min; TOTAL HEMOGLOBIN 14.5 G/dl (12.0-16.0)
[2023-06-19 04:09] LABS: APTT 25 SECONDS (22-32); INR 1.1 INR; PROTHROMBIN TIME 11.5 SECONDS (9.0-12.0)
[2023-06-19 04:11] LABS: ALANINE AMINOTRANSFERASE 73 U/L (12-78); ALBUMIN 2.4 G/DL (3.4-5.0); ALBUMIN/GLOBULIN RATIO 0.6 (1.1-1.5); ALKALINE PHOSPHATASE 180 IU/L (46-116); ANION GAP 10 (8-16); ASPARTATE AMINO TRANSFERASE 32 U/L (10-37); BILIRUBIN,TOTAL 0.6 MG/DL (0.1-1.0); BLOOD UREA NITROGEN 30 MG/DL (7-18); BUN/CREATININE RATIO 22.9 (10.0-20.0); CALCIUM 9.6 MG/DL (8.5-10.1); CHLORIDE 102 MMOL/L (99-107); CREATININE 1.31 MG/DL (0.40-0.90); GLUCOSE 169 MG/DL (70-104); MAGNESIUM 2.1 MG/DL (1.5-2.4); PHOSPHORUS 4.4 MG/DL (2.3-4.5); POTASSIUM 4.3 MMOL/L (3.5-5.1); SODIUM 139 MMOL/L (135-145); TOTAL CARBON DIOXIDE 26.6 MMOL/L (24-32); TOTAL PROTEIN 6.5 G/DL (6.4-8.2); eCRCL 49 ML/MIN; eGFR 43 ML/MIN
[2023-06-19 04:13] LABS: BASOPHILS # (AUTO) 0.1 X10'3 (0-0.2); BASOPHILS % (AUTO) 0.7 % (0-1); EOSINOPHILS # (AUTO) 0.2 X10'3 (0-0.9); EOSINOPHILS % (AUTO) 1.3 % (0-6); HEMATOCRIT 43.6 % (35.0-45.0); HEMOGLOBIN 13.6 g/dl (12.0-16.0); LYMPHOCYTES # (AUTO) 2.3 X10'3 (1.1-4.8); LYMPHOCYTES % (AUTO) 17.7 % (21-51); MEAN CORPUSCULAR HEMOGLOBIN 26.4 PG (27.0-31.0); MEAN CORPUSCULAR HGB CONC 31.3 g/dL (33.0-36.5); MEAN CORPUSCULAR VOLUME 84.5 FL (78-98); MEAN PLATELET VOLUME 8.9 FL (7.4-10.4); MONOCYTES # (AUTO) 0.8 X10'3 (0-0.9); MONOCYTES % (AUTO) 6.1 % (2-12); NEUTROPHILS # (AUTO) 9.8 X10'3 (1.8-7.7); NEUTROPHILS % (AUTO) 74.2 % (42-75); PLATELET COUNT 303 X10'3 (140-440); RED BLOOD COUNT 5.17 X10'6 (4.20-5.60); RED CELL DISTRIBUTION WIDTH 15.9 % (11.5-14.5); WHITE BLOOD COUNT 13.2 X10'3 (4.5-11.0)
[2023-06-19] MEDS: furosemide 10 MG/1 ML 10ml inj IV STA (07:02)
[2023-06-19] MEDS ORDERED: dexmedetomidin/NS 400mcg/100ml 100 ML IV PRN (07:05)
[2023-06-19] MEDS: labetalol 20mg/4ml (5mg/ml) syringe IV ONE (07:05)
[2023-06-19 08:11] LABS: ABG BASE EXCESS -11.2 mmol/L (-2.0-2.0); ABG HCO3 20.4 mmol/L (22.0-26.0); ABG OXYGEN SATURATION 53.8 % (94-97); ABG PCO2 (T) 75.6 mmHg (32.0-45.0); ABG PH (T) 7.052 (7.350-7.450); ALLEN'S TEST Modified; FCOHb 1.1 % (0.0-3.9); FHHb 45.6 % (0.0-5.0); FMetHb 0.3 % (0.0-1.5); MODE VENT - PRVC; PATIENT TEMPERATURE 37.4; PEEP 8 cm H2O; RESPIRATORY RATE 20 b/min; TIDAL VOLUME 400 mL; TOTAL HEMOGLOBIN 14.2 G/dl (12.0-16.0)
[2023-06-19] MEDS ORDERED: DOBUTamine-DoBUTrex 500mg/D5W 250 ML IV PRN (08:20)
[2023-06-19] MEDS ORDERED: fentaNYL/PF 50MCG/1 ML 2ML syringe IV PRN (10:35)
[2023-06-19] MEDS: fentaNYL/PF 50MCG/1 ML 2ML syringe IV ONE (10:46)
[2023-06-19] MEDS: FENTANYL-0.9 % NACL/PF 100 ML IV PRN (10:54)
[2023-06-19] MEDS: clopidogrel 75mg tablet PO SCH (10:57)
[2023-06-19] MEDS: furosemide 10 MG/1 ML 10ml inj IV ONE (11:40)
[2023-06-19] MEDS: tPA-cathflo 2 MG/2 ml IV flush IVF ONE (12:35)
[2023-06-19 12:37] LABS: ABG BASE EXCESS -1.5 mmol/L (-2.0-2.0); ABG HCO3 23.9 mmol/L (22.0-26.0); ABG OXYGEN SATURATION 99.7 % (94-97); ABG PCO2 (T) 43.9 mmHg (32.0-45.0); ABG PH (T) 7.357 (7.350-7.450); ABG PO2 (T) 234.9 mmHg (75.0-100.0); ALLEN'S TEST Modified; FCOHb 0.9 % (0.0-3.9); FHHb 0.3 % (0.0-5.0); FO2Hb 98.8 % (94-97); MODE VENT - APRV; PATIENT TEMPERATURE 37.7; TOTAL HEMOGLOBIN 14.6 G/dl (12.0-16.0)
[2023-06-19] MEDS: furosemide 40mg/4ml inj IV STA (15:09)
[2023-06-20] VITALS (36 sets, daily range): BP systolic 87–122; BP diastolic 44–77; PULSE 69–82; RESP 12–19; O2SAT 90–100
[2023-06-20 04:09] LABS: ABG BASE EXCESS 2.9 mmol/L (-2.0-2.0); ABG HCO3 26.9 mmol/L (22.0-26.0); ABG OXYGEN SATURATION 99.9 % (94-97); ABG PCO2 (T) 41.1 mmHg (32.0-45.0); ABG PH (T) 7.439 (7.350-7.450); ABG PO2 (T) 316.8 mmHg (75.0-100.0); ALLEN'S TEST Modified; FCOHb 0.9 % (0.0-3.9); FHHb 0.1 % (0.0-5.0); FMetHb 0.3 % (0.0-1.5); FO2Hb 98.7 % (94-97); MODE VENT - APRV; TIDAL VOLUME 586 mL
[2023-06-20] MEDS ORDERED: dextrose 50%-water 50ml dispensing syringe IV ONE (08:00)
[2023-06-20 08:17] LABS: APTT 27 SECONDS (22-32); INR 1.2 INR; PROTHROMBIN TIME 12.6 SECONDS (9.0-12.0)
[2023-06-20 08:32] LABS: ALANINE AMINOTRANSFERASE 56 U/L (12-78); ALBUMIN 2.2 G/DL (3.4-5.0); ALBUMIN/GLOBULIN RATIO 0.6 (1.1-1.5); ALKALINE PHOSPHATASE 158 IU/L (46-116); ANION GAP 8 (8-16); ASPARTATE AMINO TRANSFERASE 29 U/L (10-37); BASOPHILS % (AUTO) 0.2 % (0-1); BILIRUBIN,TOTAL 0.7 MG/DL (0.1-1.0); BLOOD UREA NITROGEN 46 MG/DL (7-18); BUN/CREATININE RATIO 23.2 (10.0-20.0); CALCIUM 9.8 MG/DL (8.5-10.1); CHLORIDE 103 MMOL/L (99-107); CREATININE 1.98 MG/DL (0.40-0.90); EOSINOPHILS % (AUTO) 0 % (0-6); GLUCOSE 106 MG/DL (70-104); HEMATOCRIT 41.4 % (35.0-45.0); HEMOGLOBIN 13.1 g/dl (12.0-16.0); LYMPHOCYTES # (AUTO) 1.4 X10'3 (1.1-4.8); MEAN CORPUSCULAR HEMOGLOBIN 26.5 PG (27.0-31.0); MEAN CORPUSCULAR HGB CONC 31.6 g/dL (33.0-36.5); MEAN CORPUSCULAR VOLUME 83.8 FL (78-98); MEAN PLATELET VOLUME 9.1 FL (7.4-10.4); MONOCYTES # (AUTO) 0.5 X10'3 (0-0.9); NEUTROPHILS % (AUTO) 83.8 % (42-75); PHOSPHORUS 4.9 MG/DL (2.3-4.5); PLATELET COUNT 246 X10'3 (140-440); POTASSIUM 4.5 MMOL/L (3.5-5.1); RED BLOOD COUNT 4.94 X10'6 (4.20-5.60); RED CELL DISTRIBUTION WIDTH 16.5 % (11.5-14.5); SODIUM 138 MMOL/L (135-145); TOTAL CARBON DIOXIDE 26.8 MMOL/L (24-32); TOTAL PROTEIN 6.2 G/DL (6.4-8.2); WHITE BLOOD COUNT 11.9 X10'3 (4.5-11.0); eCRCL 33 ML/MIN; eGFR 27 ML/MIN
[2023-06-20] MEDS: furosemide 40mg/4ml inj IV SCH (09:20)
[2023-06-20] MEDS: normal saline 1000ml 1,000 ML IV ONE (14:14)
[2023-06-20] MEDS: atorvastatin 20mg tablet PO SCH (20:34)
[2023-06-21] VITALS (27 sets, daily range): BP systolic 98–121; BP diastolic 47–69; PULSE 66–79; RESP 14–24; O2SAT 91–100
[2023-06-21 04:16] LABS: ABG BASE EXCESS 3.6 mmol/L (-2.0-2.0); ABG HCO3 27.7 mmol/L (22.0-26.0); ABG OXYGEN SATURATION 95.2 % (94-97); ABG PCO2 (T) 38.7 mmHg (32.0-45.0); ABG PH (T) 7.469 (7.350-7.450); ABG PO2 (T) 69.7 mmHg (75.0-100.0); ALLEN'S TEST Modified; FCOHb 1.1 % (0.0-3.9); FHHb 4.7 % (0.0-5.0); FMetHb 0.3 % (0.0-1.5); FO2Hb 93.9 % (94-97); MODE VENT - prvc; PATIENT TEMPERATURE 36.2; PEEP 6 cm H2O; RESPIRATORY RATE 12 b/min; TIDAL VOLUME 400 mL; TOTAL HEMOGLOBIN 12.4 G/dl (12.0-16.0)
[2023-06-21 06:09] LABS: APTT 27 SECONDS (22-32); INR 1.2 INR; PROTHROMBIN TIME 12.6 SECONDS (9.0-12.0)
[2023-06-21 06:13] LABS: ALANINE AMINOTRANSFERASE 40 U/L (12-78); ALBUMIN 1.8 G/DL (3.4-5.0); ALBUMIN/GLOBULIN RATIO 0.5 (1.1-1.5); ANION GAP 8 (8-16); ASPARTATE AMINO TRANSFERASE 19 U/L (10-37); BILIRUBIN,TOTAL 0.6 MG/DL (0.1-1.0); BLOOD UREA NITROGEN 34 MG/DL (7-18); CALCIUM 9.2 MG/DL (8.5-10.1); CHLORIDE 106 MMOL/L (99-107); CREATININE 1.26 MG/DL (0.40-0.90); GLUCOSE 100 MG/DL (70-104); MAGNESIUM 1.7 MG/DL (1.5-2.4); PHOSPHORUS 2.9 MG/DL (2.3-4.5); POTASSIUM 3.9 MMOL/L (3.5-5.1); SODIUM 145 MMOL/L (135-145); TOTAL CARBON DIOXIDE 30.9 MMOL/L (24-32); TOTAL PROTEIN 5.5 G/DL (6.4-8.2); eCRCL 51 ML/MIN; eGFR 45 ML/MIN
[2023-06-21 06:14] LABS: ALKALINE PHOSPHATASE 137 IU/L (46-116); PREALBUMIN 14.1 MG/DL (19-36)
[2023-06-21 06:24] LABS: BASOPHILS % (AUTO) 0.1 % (0-1); EOSINOPHILS % (AUTO) 0.1 % (0-6); HEMATOCRIT 37.2 % (35.0-45.0); HEMOGLOBIN 11.9 g/dl (12.0-16.0); LYMPHOCYTES # (AUTO) 0.9 X10'3 (1.1-4.8); LYMPHOCYTES % (AUTO) 8.4 % (21-51); MEAN CORPUSCULAR HEMOGLOBIN 26.7 PG (27.0-31.0); MEAN CORPUSCULAR HGB CONC 31.8 g/dL (33.0-36.5); MEAN CORPUSCULAR VOLUME 83.9 FL (78-98); MEAN PLATELET VOLUME 8.9 FL (7.4-10.4); MONOCYTES # (AUTO) 0.6 X10'3 (0-0.9); MONOCYTES % (AUTO) 5.5 % (2-12); NEUTROPHILS # (AUTO) 8.9 X10'3 (1.8-7.7); NEUTROPHILS % (AUTO) 85.9 % (42-75); PLATELET COUNT 202 X10'3 (140-440); RED BLOOD COUNT 4.44 X10'6 (4.20-5.60); RED CELL DISTRIBUTION WIDTH 16.1 % (11.5-14.5); WHITE BLOOD COUNT 10.4 X10'3 (4.5-11.0)
[2023-06-21 14:20] LABS: PRO BRAIN NATRIURETIC PEPTIDE 2984 PG/ML (0-125)
[2023-06-21] MEDS: furosemide 40mg/4ml inj IV ONE (14:34)
[2023-06-21] MEDS: furosemide 20 MG/2 ML vial IV SCH (20:09)
[2023-06-22] VITALS (9 sets, daily range): BP systolic 89–116; BP diastolic 54–62; PULSE 69–77; RESP 16–23; TEMP 97.9; O2SAT 91–98
[2023-06-22 05:36] LABS: BASOPHILS % (AUTO) 0.2 % (0-1); EOSINOPHILS % (AUTO) 0.3 % (0-6); HEMATOCRIT 38.6 % (35.0-45.0); HEMOGLOBIN 12.2 g/dl (12.0-16.0); LYMPHOCYTES # (AUTO) 0.8 X10'3 (1.1-4.8); LYMPHOCYTES % (AUTO) 8.8 % (21-51); MEAN CORPUSCULAR HEMOGLOBIN 26.5 PG (27.0-31.0); MEAN CORPUSCULAR HGB CONC 31.7 g/dL (33.0-36.5); MEAN CORPUSCULAR VOLUME 83.7 FL (78-98); MEAN PLATELET VOLUME 8.2 FL (7.4-10.4); MONOCYTES # (AUTO) 0.4 X10'3 (0-0.9); NEUTROPHILS # (AUTO) 7.7 X10'3 (1.8-7.7); NEUTROPHILS % (AUTO) 86.7 % (42-75); PLATELET COUNT 227 X10'3 (140-440); RED BLOOD COUNT 4.61 X10'6 (4.20-5.60); RED CELL DISTRIBUTION WIDTH 15.8 % (11.5-14.5); WHITE BLOOD COUNT 8.9 X10'3 (4.5-11.0)
[2023-06-22 05:57] LABS: APTT 29 SECONDS (22-32); PROTHROMBIN TIME 11.1 SECONDS (9.0-12.0)
[2023-06-22 06:03] LABS: ALANINE AMINOTRANSFERASE 38 U/L (12-78); ALBUMIN 1.9 G/DL (3.4-5.0); ALBUMIN/GLOBULIN RATIO 0.4 (1.1-1.5); ALKALINE PHOSPHATASE 136 IU/L (46-116); ANION GAP 7 (8-16); ASPARTATE AMINO TRANSFERASE 21 U/L (10-37); BILIRUBIN,TOTAL 0.6 MG/DL (0.1-1.0); BLOOD UREA NITROGEN 22 MG/DL (7-18); BUN/CREATININE RATIO 21.8 (10.0-20.0); CALCIUM 9.5 MG/DL (8.5-10.1); CHLORIDE 104 MMOL/L (99-107); CREATININE 1.01 MG/DL (0.40-0.90); GLUCOSE 130 MG/DL (70-104); MAGNESIUM 1.6 MG/DL (1.5-2.4); PHOSPHORUS 2.4 MG/DL (2.3-4.5); POTASSIUM 3.7 MMOL/L (3.5-5.1); SODIUM 145 MMOL/L (135-145); TOTAL CARBON DIOXIDE 34.4 MMOL/L (24-32); TOTAL PROTEIN 6.2 G/DL (6.4-8.2); eCRCL 64 ML/MIN; eGFR 58 ML/MIN
[2023-06-22] MEDS ORDERED: potassium Cl 40MEQ/1/2NS 520ml 520 ML IV PRN (06:15)
[2023-06-22] MEDS ORDERED: aspirin 81mg tab.chew PO SCH (08:30)
[2023-06-22] MEDS: sacubitril/valsartan 24mg-26mg tablet PO SCH (20:17)
[2023-06-23] VITALS (13 sets, daily range): BP systolic 108–128; BP diastolic 56–72; PULSE 69–83; RESP 16–30; TEMP 97.4–98.1; O2SAT 88–100
[2023-06-23 06:52] LABS: BASOPHILS % (AUTO) 0.5 % (0-1); EOSINOPHILS # (AUTO) 0.1 X10'3 (0-0.9); EOSINOPHILS % (AUTO) 1.4 % (0-6); HEMATOCRIT 36.5 % (35.0-45.0); HEMOGLOBIN 11.6 g/dl (12.0-16.0); LYMPHOCYTES # (AUTO) 1.1 X10'3 (1.1-4.8); LYMPHOCYTES % (AUTO) 15.2 % (21-51); MEAN CORPUSCULAR HEMOGLOBIN 26.8 PG (27.0-31.0); MEAN CORPUSCULAR HGB CONC 31.9 g/dL (33.0-36.5); MEAN CORPUSCULAR VOLUME 83.8 FL (78-98); MEAN PLATELET VOLUME 8.4 FL (7.4-10.4); MONOCYTES # (AUTO) 0.4 X10'3 (0-0.9); MONOCYTES % (AUTO) 5.6 % (2-12); NEUTROPHILS # (AUTO) 5.6 X10'3 (1.8-7.7); NEUTROPHILS % (AUTO) 77.3 % (42-75); PLATELET COUNT 219 X10'3 (140-440); RED BLOOD COUNT 4.35 X10'6 (4.20-5.60); RED CELL DISTRIBUTION WIDTH 15.7 % (11.5-14.5); WHITE BLOOD COUNT 7.2 X10'3 (4.5-11.0)
[2023-06-23 07:07] LABS: APTT 29 SECONDS (22-32); PROTHROMBIN TIME 10.4 SECONDS (9.0-12.0)
[2023-06-23 07:24] LABS: ALANINE AMINOTRANSFERASE 32 U/L (12-78); ALBUMIN 1.9 G/DL (3.4-5.0); ALBUMIN/GLOBULIN RATIO 0.5 (1.1-1.5); ALKALINE PHOSPHATASE 144 IU/L (46-116); ANION GAP 4 (8-16); ASPARTATE AMINO TRANSFERASE 21 U/L (10-37); BILIRUBIN,TOTAL 0.4 MG/DL (0.1-1.0); BLOOD UREA NITROGEN 19 MG/DL (7-18); BUN/CREATININE RATIO 23.8 (10.0-20.0); CALCIUM 8.6 MG/DL (8.5-10.1); CHLORIDE 103 MMOL/L (99-107); GLUCOSE 223 MG/DL (70-104); MAGNESIUM 1.9 MG/DL (1.5-2.4); PHOSPHORUS 2.1 MG/DL (2.3-4.5); POTASSIUM 3.4 MMOL/L (3.5-5.1); SODIUM 142 MMOL/L (135-145); TOTAL CARBON DIOXIDE 34.9 MMOL/L (24-32); TOTAL PROTEIN 5.9 G/DL (6.4-8.2); eCRCL 81 ML/MIN; eGFR 76 ML/MIN
[2023-06-23] MEDS: potassium Cl 20 mEq SR tablet PO PRN (08:35)
[2023-06-23] MEDS ORDERED: ipratropium/albuterol 3ml nebule NEB PRN (09:35)
[2023-06-23] MEDS: furosemide 40mg/4ml inj IV ONE (09:50)
[2023-06-23 09:54] LABS: ABG BASE EXCESS 6.3 mmol/L (-2.0-2.0); ABG HCO3 31.3 mmol/L (22.0-26.0); ABG OXYGEN SATURATION 96.3 % (94-97); ABG PCO2 (T) 45.6 mmHg (32.0-45.0); ABG PH (T) 7.453 (7.350-7.450); ABG PO2 (T) 76.8 mmHg (75.0-100.0); ALLEN'S TEST POSITIVE; FHHb 3.7 % (0.0-5.0); FLOW 6 L/min; FMetHb 0.3 % (0.0-1.5); MODE NASAL CANNULA; PATIENT TEMPERATURE 36.8; TOTAL HEMOGLOBIN 13.1 G/dl (12.0-16.0)
[2023-06-23] MEDS: ipratropium/albuterol 3ml nebule NEB PRN (10:00)
[2023-06-23] MEDS ORDERED: ondansetron 4mg rapidly disintigrating tab PO PRN (14:55)
[2023-06-24] VITALS (11 sets, daily range): BP systolic 104–122; BP diastolic 40–74; PULSE 64–72; RESP 16–26; TEMP 96.9–99.5; O2SAT 92–99
[2023-06-24 12:57] LABS: BASOPHILS % (AUTO) 0.7 % (0-1); EOSINOPHILS # (AUTO) 0.1 X10'3 (0-0.9); EOSINOPHILS % (AUTO) 2.1 % (0-6); HEMATOCRIT 39.6 % (35.0-45.0); HEMOGLOBIN 12.7 g/dl (12.0-16.0); MEAN CORPUSCULAR HEMOGLOBIN 26.9 PG (27.0-31.0); MEAN CORPUSCULAR HGB CONC 32.1 g/dL (33.0-36.5); MEAN CORPUSCULAR VOLUME 83.7 FL (78-98); MEAN PLATELET VOLUME 8.5 FL (7.4-10.4); MONOCYTES # (AUTO) 0.5 X10'3 (0-0.9); MONOCYTES % (AUTO) 7.1 % (2-12); NEUTROPHILS # (AUTO) 4.7 X10'3 (1.8-7.7); NEUTROPHILS % (AUTO) 74.1 % (42-75); PLATELET COUNT 236 X10'3 (140-440); RED BLOOD COUNT 4.73 X10'6 (4.20-5.60); RED CELL DISTRIBUTION WIDTH 16.2 % (11.5-14.5); WHITE BLOOD COUNT 6.3 X10'3 (4.5-11.0)
[2023-06-24 13:14] LABS: ALANINE AMINOTRANSFERASE 33 U/L (12-78); ALBUMIN 2.2 G/DL (3.4-5.0); ALBUMIN/GLOBULIN RATIO 0.5 (1.1-1.5); ALKALINE PHOSPHATASE 151 IU/L (46-116); ANION GAP 10 (8-16); ASPARTATE AMINO TRANSFERASE 30 U/L (10-37); BILIRUBIN,TOTAL 0.4 MG/DL (0.1-1.0); BLOOD UREA NITROGEN 15 MG/DL (7-18); BUN/CREATININE RATIO 20.8 (10.0-20.0); CALCIUM 9.2 MG/DL (8.5-10.1); CHLORIDE 102 MMOL/L (99-107); CREATININE 0.72 MG/DL (0.40-0.90); GLUCOSE 150 MG/DL (70-104); POTASSIUM 3.7 MMOL/L (3.5-5.1); PREALBUMIN 15.9 MG/DL (19-36); PRO BRAIN NATRIURETIC PEPTIDE 9712 PG/ML (0-125); SODIUM 145 MMOL/L (135-145); TOTAL CARBON DIOXIDE 33.5 MMOL/L (24-32); TOTAL PROTEIN 6.5 G/DL (6.4-8.2); eCRCL 90 ML/MIN; eGFR 85 ML/MIN
[2023-06-25] VITALS (10 sets, daily range): BP systolic 94–126; BP diastolic 55–77; PULSE 62–77; RESP 12–22; TEMP 97.4–98.2; O2SAT 93–100
[2023-06-25] MEDS: furosemide 20 MG/2 ML vial IV SCH (21:52)
[2023-06-25] MEDS: OXAZEpam 15mg capsule PO PRN (22:10)
[2023-06-26] VITALS (10 sets, daily range): BP systolic 100–110; BP diastolic 55–64; PULSE 64–81; RESP 18–20; TEMP 97.2–98.5; O2SAT 89–98
[2023-06-26 06:02] LABS: ANION GAP 5 (8-16); BLOOD UREA NITROGEN 17 MG/DL (7-18); BUN/CREATININE RATIO 22.7 (10.0-20.0); CALCIUM 8.9 MG/DL (8.5-10.1); CHLORIDE 102 MMOL/L (99-107); CREATININE 0.75 MG/DL (0.40-0.90); GLUCOSE 81 MG/DL (70-104); SODIUM 144 MMOL/L (135-145); TOTAL CARBON DIOXIDE 37.3 MMOL/L (24-32); eCRCL 86 ML/MIN; eGFR 81 ML/MIN
[2023-06-26 06:03] LABS: POTASSIUM 3.3 MMOL/L (3.5-5.1)
[2023-06-27] VITALS (7 sets, daily range): BP systolic 91–119; BP diastolic 58–70; PULSE 69–77; RESP 13–24; TEMP 97.7–98.5; O2SAT 96–99
[2023-06-27 07:04] LABS: ALBUMIN 2.1 G/DL (3.4-5.0); ANION GAP 7 (8-16); BLOOD UREA NITROGEN 15 MG/DL (7-18); BUN/CREATININE RATIO 17.9 (10.0-20.0); CALCIUM 9.2 MG/DL (8.5-10.1); CHLORIDE 102 MMOL/L (99-107); CREATININE 0.84 MG/DL (0.40-0.90); GLUCOSE 137 MG/DL (70-104); POTASSIUM 3.9 MMOL/L (3.5-5.1); SODIUM 143 MMOL/L (135-145); TOTAL CARBON DIOXIDE 33.6 MMOL/L (24-32); eCRCL 77 ML/MIN; eGFR 71 ML/MIN
[2023-06-27 09:50] LABS: BASOPHILS # (AUTO) 0.1 X10'3 (0-0.2); BASOPHILS % (AUTO) 0.9 % (0-1); EOSINOPHILS # (AUTO) 0.2 X10'3 (0-0.9); EOSINOPHILS % (AUTO) 3.8 % (0-6); HEMOGLOBIN 11.8 g/dl (12.0-16.0); LYMPHOCYTES # (AUTO) 1.3 X10'3 (1.1-4.8); MEAN CORPUSCULAR HEMOGLOBIN 26.7 PG (27.0-31.0); MEAN CORPUSCULAR HGB CONC 31.9 g/dL (33.0-36.5); MEAN CORPUSCULAR VOLUME 83.5 FL (78-98); MONOCYTES # (AUTO) 0.4 X10'3 (0-0.9); MONOCYTES % (AUTO) 6.3 % (2-12); NEUTROPHILS # (AUTO) 4.1 X10'3 (1.8-7.7); PLATELET COUNT 216 X10'3 (140-440); RED BLOOD COUNT 4.43 X10'6 (4.20-5.60); RED CELL DISTRIBUTION WIDTH 15.6 % (11.5-14.5)
[2023-06-27] MEDS: furosemide 40mg tablet PO SCH (10:00)
[2023-06-27] MEDS: spironolactone 25 MG tablet PO SCH (10:03)
[2023-06-27 10:05] LABS: BILIRUBIN,DIRECT 0.2 MG/DL (0-0.3)
[2023-06-27 10:15] LABS: ALANINE AMINOTRANSFERASE 27 U/L (12-78); ALBUMIN/GLOBULIN RATIO 0.5 (1.1-1.5); ALKALINE PHOSPHATASE 139 IU/L (46-116); ASPARTATE AMINO TRANSFERASE 26 U/L (10-37); BILIRUBIN,TOTAL 0.4 MG/DL (0.1-1.0); TOTAL PROTEIN 6.4 G/DL (6.4-8.2)
[2023-06-28 02:00] VITALS: BP 123/78; PULSE 75; RESP 18; TEMP 97.9; O2SAT 97
[2023-06-28 03:22] VITALS: PULSE 73; RESP 18; O2SAT 97
[2023-06-28 05:57] LABS: ALBUMIN 2.2 G/DL (3.4-5.0); ANION GAP 3 (8-16); BLOOD UREA NITROGEN 16 MG/DL (7-18); BUN/CREATININE RATIO 21.6 (10.0-20.0); CALCIUM 9.6 MG/DL (8.5-10.1); CHLORIDE 102 MMOL/L (99-107); CREATININE 0.74 MG/DL (0.40-0.90); GLUCOSE 173 MG/DL (70-104); SODIUM 137 MMOL/L (135-145); TOTAL CARBON DIOXIDE 31.6 MMOL/L (24-32); eCRCL 87 ML/MIN; eGFR 83 ML/MIN
[2023-06-28 06:04] LABS: POTASSIUM 4.8 MMOL/L (3.5-5.1)
[2023-06-28 08:00] VITALS: RESP 18; O2SAT 94
[2023-06-28 08:47] VITALS: BP 124/70; PULSE 71; RESP 16; TEMP 97.9; O2SAT 98
[2023-06-28 10:34] VITALS: PULSE 76; RESP 16; O2SAT 99
[2023-06-28 11:00] VITALS: BP 108/50; PULSE 75; RESP 18; TEMP 97.8
[2023-06-28] MEDS ORDERED: ASPI81TA53 PO (16:56)
[2023-06-28] MEDS ORDERED: FURO40TA4 PO (16:56)
[2023-06-28] MEDS ORDERED: POTA-207 PO (16:56)
[2023-06-28] MEDS ORDERED: AMI200T PO (16:56)
[2023-06-28] MEDS ORDERED: SACU1TAB PO (16:56)
[2023-06-28] MEDS ORDERED: SPIR25TA PO (16:56)
[2023-06-28] MEDS ORDERED: CLOP75TA34 PO (16:56)
[2023-06-28] MEDS ORDERED: ATOR20TA66 PO (16:56)
[2023-06-28] MEDS ORDERED: METO-395 PO (16:56)
[2023-06-28] MEDS ORDERED: sacubitril/valsartan 24mg-26mg tablet PO SCH (20:00)
== END 2023-06-28 17:30 | disposition home or self-care (01) | DRG 853 ==
LOC: ER 00:56 → ED HOLD 06:36 → EDBEDREQ 07:00 → CICU 2S 07:30 → PCU 3S 06-22 13:14
PROVIDERS: ADMIT Internal Medicine Critical Care Medicine; ATTEND Internal Medicine Critical Care Medicine
PROC: 4A00X4Z Measurement of Central Nervous Electrical Activity, External Approach (ICD-10-PCS; 2023-06-09)
PROC: 05HY33Z Insertion of Infusion Device into Upper Vein, Percutaneous Approach (ICD-10-PCS; 2023-06-09)
PROC: 4A00X4Z Measurement of Central Nervous Electrical Activity, External Approach (ICD-10-PCS; 2023-06-09)
PROC: BW251ZZ Computerized Tomography (CT Scan) of Chest, Abdomen and Pelvis using Low Osmolar Contrast (ICD-10-PCS; 2023-06-09)
PROC: 5A1945Z Respiratory Ventilation, 24-96 Consecutive Hours (ICD-10-PCS; 2023-06-09)
PROC: 03HY32Z Insertion of Monitoring Device into Upper Artery, Percutaneous Approach (ICD-10-PCS; 2023-06-10)
PROC: 5A12012 Performance of Cardiac Output, Single, Manual (ICD-10-PCS; 2023-06-12)
PROC: 5A09357 Assistance with Respiratory Ventilation, Less than 24 Consecutive Hours, Continuous Positive Airway Pressure (ICD-10-PCS; 2023-06-12)
PROC: 5A09357 Assistance with Respiratory Ventilation, Less than 24 Consecutive Hours, Continuous Positive Airway Pressure (ICD-10-PCS; 2023-06-13)
PROC: 5A09357 Assistance with Respiratory Ventilation, Less than 24 Consecutive Hours, Continuous Positive Airway Pressure (ICD-10-PCS; 2023-06-14)
PROC: 4A023N7 Measurement of Cardiac Sampling and Pressure, Left Heart, Percutaneous Approach (ICD-10-PCS; 2023-06-15)
PROC: B2111ZZ Fluoroscopy of Multiple Coronary Arteries using Low Osmolar Contrast (ICD-10-PCS; 2023-06-15)
PROC: 5A09357 Assistance with Respiratory Ventilation, Less than 24 Consecutive Hours, Continuous Positive Airway Pressure (ICD-10-PCS; 2023-06-15)
PROC: 05HB33Z Insertion of Infusion Device into Right Basilic Vein, Percutaneous Approach (ICD-10-PCS; 2023-06-17)
PROC: 027034Z Dilation of Coronary Artery, One Artery with Drug-eluting Intraluminal Device, Percutaneous Approach (ICD-10-PCS; principal; 2023-06-18)
PROC: 4A023N7 Measurement of Cardiac Sampling and Pressure, Left Heart, Percutaneous Approach (ICD-10-PCS; 2023-06-18)
PROC: B2111ZZ Fluoroscopy of Multiple Coronary Arteries using Low Osmolar Contrast (ICD-10-PCS; 2023-06-18)
PROC: 5A09357 Assistance with Respiratory Ventilation, Less than 24 Consecutive Hours, Continuous Positive Airway Pressure (ICD-10-PCS; 2023-06-18)
PROC: 5A12012 Performance of Cardiac Output, Single, Manual (ICD-10-PCS; 2023-06-19)
PROC: 0BH17EZ Insertion of Endotracheal Airway into Trachea, Via Natural or Artificial Opening (ICD-10-PCS; 2023-06-19)
PROC: 5A1945Z Respiratory Ventilation, 24-96 Consecutive Hours (ICD-10-PCS; 2023-06-19)
PROC: 5A09357 Assistance with Respiratory Ventilation, Less than 24 Consecutive Hours, Continuous Positive Airway Pressure (ICD-10-PCS; 2023-06-20)
DX: A41.9 Sepsis, unspecified organism (principal); E11.11 Type 2 diabetes mellitus with ketoacidosis with coma; I21.4 Non-ST elevation (NSTEMI) myocardial infarction; I46.9 Cardiac arrest, cause unspecified; J96.01 Acute respiratory failure with hypoxia; K72.00 Acute and subacute hepatic failure without coma; I50.23 Acute on chronic systolic (congestive) heart failure; J69.0 Pneumonitis due to inhalation of food and vomit; N17.0 Acute kidney failure with tubular necrosis; I49.01 Ventricular fibrillation; I47.20 Ventricular tachycardia, unspecified; I13.0 Hypertensive heart and chronic kidney disease with heart failure and stage 1 through stage 4 chronic kidney disease, or unspecified chronic kidney disease; I42.7 Cardiomyopathy due to drug and external agent; G93.1 Anoxic brain damage, not elsewhere classified; I25.110 Atherosclerotic heart disease of native coronary artery with unstable angina pectoris; J44.9 Chronic obstructive pulmonary disease, unspecified; Z66 Do not resuscitate; R23.0 Cyanosis; Z20.822 Contact with and (suspected) exposure to COVID-19; F15.10 Other stimulant abuse, uncomplicated; G47.30 Sleep apnea, unspecified; R56.9 Unspecified convulsions; I08.1 Rheumatic disorders of both mitral and tricuspid valves; E78.5 Hyperlipidemia, unspecified; E87.6 Hypokalemia; I25.5 Ischemic cardiomyopathy; E11.22 Type 2 diabetes mellitus with diabetic chronic kidney disease; N18.9 Chronic kidney disease, unspecified; I25.2 Old myocardial infarction; Z88.5 Allergy status to narcotic agent; Z87.891 Personal history of nicotine dependence; Z91.148 Patient's other noncompliance with medication regimen for other reason
CPT/HCPCS: 36556; 92950; 93306; 93308; 93458; 96365; 96366; 96368; 96375; 99291; C9600; 36410; 36415; 36600; 70450; 71045; 71260; 74177; 76937; 80048; 80053; 80076; 80305; 80320; 80329; 81001; 82800; 82803; 82810; 82948; 83036; 83605; 83735; 83880; 84100; 84132; 84134; 84145; 84484; 85018; 85025; 85610; 85730; 87040; 87070; 87081; 87088; 87186; 87502; 87503; 87811; 92508; 92616; 93005; 94002; 94003; 94640; 94660; 94760; 94799; 95816; 97110; 97116; 97161; 97530; 97535; 99152; A4333; A4615; A5200; A6212; A6213; A6250; A6258; A6449; A9900; C1725; C1751; C1758; C1769; C1874; C1894; C9113; G0378; J0131; J0282; J1250; J1644; J1815; J1940; J2001; J2060; J2250; J2260; J2543; J2704; J2997; J3010; J3370; J3475; J3480; J3490; J7030; J7040; J7050; Q9967

== ENCOUNTER 2023-09-20 11:33 | Emergency (ER) | payer BC ==
[~2023-09-20] VITALS: Ht 172.7 cm; Wt 82.7 kg
[~2023-09-20 11:33] MED LIST changes: +ALBU18HF2 INH; +AMI200T PO; +ASPI81TA53 PO; +ATOR20TA66 PO; +CLOP75TA34 PO; -COR3.125T PO; -FURO-149 PO; +FURO40TA4 PO; +HYDR50TA65 PO; +LANTUS SQ; -LISI5TAB22 PO; +METO-395 PO; +SACU1TAB PO; +SPIR25TA PO
[2023-09-20 11:36] VITALS: TEMP 98
[2023-09-20] MEDS: dexamethasone sod phosphate 10mg/ml inj IM STA (13:34)
[2023-09-20 13:35] VITALS: PULSE 48
[2023-09-20 13:38] VITALS: RESP 14
[2023-09-20] MEDS ORDERED: PRED20TA PO (15:28)
[2023-09-20 15:39] VITALS: BP 103/69; O2SAT 98
== END 2023-09-20 15:37 | disposition home or self-care (01) ==
LOC: ER 11:34
DX: T63.441A Toxic effect of venom of bees, accidental (unintentional), initial encounter (principal); T78.2XXA Anaphylactic shock, unspecified, initial encounter; X58.XXXA Exposure to other specified factors, initial encounter; I11.0 Hypertensive heart disease with heart failure; I50.9 Heart failure, unspecified; E11.9 Type 2 diabetes mellitus without complications; F15.90 Other stimulant use, unspecified, uncomplicated; Z88.8 Allergy status to other drugs, medicaments and biological substances; Z79.82 Long term (current) use of aspirin; Z79.899 Other long term (current) drug therapy
CPT/HCPCS: 96372; 99283; J1100

== ENCOUNTER 2024-02-03 09:18 | Emergency (ER) | payer BC ==
[~2024-02-03] VITALS: Ht 175.3 cm; Wt 82.8 kg
[2024-02-03 09:22] VITALS: BP 118/77; PULSE 65; O2SAT 99
[2024-02-03 11:22] VITALS: RESP 18; TEMP 97.2
== END 2024-02-03 11:24 | disposition home or self-care (01) ==
LOC: ER 09:18
DX: S90.32XA Contusion of left foot, initial encounter (principal); I11.0 Hypertensive heart disease with heart failure; I50.9 Heart failure, unspecified; E11.9 Type 2 diabetes mellitus without complications; F15.90 Other stimulant use, unspecified, uncomplicated; F19.90 Other psychoactive substance use, unspecified, uncomplicated; Z88.5 Allergy status to narcotic agent; Z91.030 Bee allergy status; Z79.82 Long term (current) use of aspirin; Z79.899 Other long term (current) drug therapy; W23.0XXA Caught, crushed, jammed, or pinched between moving objects, initial encounter; Y93.89 Activity, other specified; Y92.89 Other specified places as the place of occurrence of the external cause; Y99.8 Other external cause status
CPT/HCPCS: 73630; 99283; L3265; L3260

== ENCOUNTER 2024-05-20 11:39 | Inpatient (IN) | payer BC ==
[~2024-05-20] VITALS: Ht 177.8 cm; Wt 88.6 kg
[2024-05-20] MEDS: acetaminophen 325mg tablet PO ONE (11:56)
[2024-05-20 13:47] LABS: ABG BASE EXCESS -0.5 mmol/L (-2.0-3.0); ABG HCO3 22.5 mmol/L (21.0-28.0); ABG PCO2 (T) 33.9 mmHg (32.0-45.0); ABG PH (T) 7.445 (7.350-7.450); ABG PO2 (T) 65.2 mmHg (83.0-108.0); ALLEN'S TEST POSITIVE; FCOHb 1.1 % (0.5-1.5); FHHb 8.9 % (0.0-5.0); FLOW 0 L/min; FMetHb 0.3 % (0.0-1.5); FO2Hb 89.7 % (94.0-98.0); MODE ROOM AIR; PATIENT TEMPERATURE 38.2; TOTAL HEMOGLOBIN 13.1 G/dl (12.0-16.0)
[2024-05-20] MEDS: normal saline 1000ml 1,000 ML IV ONE (14:23)
[2024-05-20] MEDS: ondansetron/PF 4mg/2ml inj IV ONE (14:23)
[2024-05-20 14:30] LABS: BILIRUBIN,URINE NEGATIVE (Neg); CLARITY,URINE CLEAR (Clear); COLOR,URINE YELLOW (Yellow); GLUCOSE, URINE 500 mg/dl (Neg); KETONES,URINE NEGATIVE (Neg); LEUKOCYTE ESTERASE ,URINE NEGATIVE (Neg); OCCULT BLOOD,URINE SMALL (Neg); PH,URINE 5.5 (4.8-8.0); PROTEIN,URINE >=300 mg/dl (Neg); UROBILINOGEN,URINE 0.2 E.U/dL (0.2-1.0)
[2024-05-20 14:35] LABS: UA COLLECTION TYPE CLN CATCH MIDSTREAM
[2024-05-20 14:36] LABS: BASOPHILS % (AUTO) 0.3 % (0-1); EOSINOPHILS % (AUTO) 0 % (0-6); HEMATOCRIT 34.9 % (35.0-45.0); HEMOGLOBIN 11.5 g/dl (12.0-16.0); LYMPHOCYTES # (AUTO) 0.7 X10'3 (1.1-4.8); LYMPHOCYTES % (AUTO) 7.3 % (21-51); MEAN CORPUSCULAR HEMOGLOBIN 29.6 PG (27.0-31.0); MEAN CORPUSCULAR HGB CONC 33.1 g/dL (33.0-36.5); MEAN CORPUSCULAR VOLUME 89.3 FL (78-98); MEAN PLATELET VOLUME 9.3 FL (7.4-10.4); MONOCYTES # (AUTO) 0.5 X10'3 (0-0.9); MONOCYTES % (AUTO) 5.4 % (2-12); NEUTROPHILS # (AUTO) 8.8 X10'3 (1.8-7.7); PLATELET COUNT 117 X10'3 (140-440); RED BLOOD COUNT 3.91 X10'6 (4.20-5.60); RED CELL DISTRIBUTION WIDTH 14.1 % (11.5-14.5); WHITE BLOOD COUNT 10.1 X10'3 (4.5-11.0)
[2024-05-20 14:37] LABS: NITRITES, URINE NEGATIVE (Neg)
[2024-05-20 14:38] LABS: BACTERIA,URINE FEW /HPF (Neg); HYALINE CASTS 0-3 /LPF (NEGATIVE); MUCUS STRANDS FEW /LPF (Neg); RBC,URINE 0-2 /HPF (0-2); SQUAMOUS EPITHELIAL CELL,UR MODERATE /LPF (FEW); WBC,URINE 0-4 /HPF (0-4)
[2024-05-20 14:51] LABS: ALANINE AMINOTRANSFERASE 135 U/L (12-78); ALBUMIN 3.1 G/DL (3.4-5.0); ALBUMIN/GLOBULIN RATIO 0.9 (1.1-1.5); ALKALINE PHOSPHATASE 105 IU/L (46-116); ANION GAP 8 (8-16); ASPARTATE AMINO TRANSFERASE 109 U/L (10-37); BILIRUBIN,TOTAL 0.5 MG/DL (0.1-1.0); BLOOD UREA NITROGEN 25 MG/DL (7-18); BUN/CREATININE RATIO 19.1 (10.0-20.0); CALCIUM 8.5 MG/DL (8.5-10.1); CHLORIDE 96 MMOL/L (99-107); CREATININE 1.31 MG/DL (0.40-0.90); GLUCOSE 263 MG/DL (70-104); POTASSIUM 3.8 MMOL/L (3.5-5.1); SODIUM 129 MMOL/L (135-145); TOTAL CARBON DIOXIDE 24.7 MMOL/L (24-32); TOTAL PROTEIN 6.7 G/DL (6.4-8.2); eCRCL 54 ML/MIN; eGFR 43 ML/MIN
[2024-05-20 14:51] LABS: URINE AMPHETAMINE SCREEN NEGATIVE (Neg); URINE BARBITUATE SCREEN NEGATIVE (Neg); URINE BENZODIAZEPINES SCREEN NEGATIVE (Neg); URINE CANNABINOID SCREEN NEGATIVE (Neg); URINE COCAINE SCREEN NEGATIVE (Neg); URINE METHADONE SCREEN NEGATIVE (Neg); URINE OPIATE SCREEN NEGATIVE (Neg); URINE PHENCYCLIDINE SCREEN NEGATIVE (Neg)
[2024-05-20] MEDS ORDERED: HYDROcodone/acetaminophen 5mg/325mg tablet PO PRN (17:50)
[2024-05-20] MEDS ORDERED: magnesium hydroxide 30ml (MOM) UD suspension PO PRN (17:50)
[2024-05-20] MEDS ORDERED: mag hydrox/Alum hydrox/simeth 30ml oral suspension PO PRN (17:50)
[2024-05-20] MEDS ORDERED: diphenhydrAMINE 25mg capsule PO PRN (17:50)
[2024-05-20] MEDS ORDERED: ipratropium/albuterol 3ml nebule NEB PRN (17:50)
[2024-05-20] MEDS ORDERED: acetaminophen 650mg rectal suppository RC PRN (17:50)
[2024-05-20] MEDS ORDERED: ondansetron 4mg rapidly disintigrating tab PO PRN (17:50)
[2024-05-20] MEDS ORDERED: bisacodyl 10mg suppository rectal RC PRN (17:50)
[2024-05-20] MEDS ORDERED: morphine 2 MG/ML inj. syringe IV PRN (17:50)
[2024-05-20] MEDS ORDERED: ondansetron/PF 4mg/2ml inj IV PRN (17:50)
[2024-05-20] MEDS ORDERED: acetaminophen 325mg tablet PO PRN (17:50)
[2024-05-20] MEDS ORDERED: diphenhydrAMINE 50 mg/ml inj IV PRN (17:50)
[2024-05-20] MEDS ORDERED: DEXTROSE 15 GM of carb/4 tabs (each vial/BOTTLE has 4 tablets) PO PRN ×2 (18:00)
[2024-05-20] MEDS ORDERED: dextrose 50%-water 50ml dispensing syringe IV PRN ×2 (18:00)
[2024-05-20] MEDS ORDERED: glucagon, human recombinant 1mg kit SUBCUT PRN (18:00)
[2024-05-20 18:34] LABS: APTT 29 SECONDS (22-32); D-DIMER 0.74 MG/L FEU (0-0.50); INR 1.1 INR; PROTHROMBIN TIME 11.4 SECONDS (9.0-12.0)
[2024-05-20 18:38] LABS: MAGNESIUM 1.6 MG/DL (1.5-2.4); PHOSPHORUS 2.9 MG/DL (2.3-4.5)
[2024-05-20 18:52] LABS: HEMOGLOBIN A1C 9.2 % (4.5-6.2)
[2024-05-20 19:07] LABS: PRO BRAIN NATRIURETIC PEPTIDE 11914 PG/ML (0-125); THYROID STIMULATING HORMONE 1.87 ulU/ml (0.34-4.50)
[2024-05-20] MEDS: CefTRIAXone/D5W-Rocephin 1gm 50 ML IV ONE (19:09)
[2024-05-20] MEDS: normal saline 1000ml 1,000 ML IV SCH (19:13)
[2024-05-20] MEDS: oseltamivir phos 75mg capsule PO SCH (19:13)
[2024-05-20] MEDS: docusate sod 100mg capsule PO SCH (19:13)
[2024-05-20] MEDS: heparin, porcine 5000 units/ml vial SQ SCH (19:15)
[2024-05-20] MEDS: INSULIN LISPRO 100 UNIT/ML INSULN.PEN MULTI-DOSE SQ SCH (20:46)
[2024-05-20] MEDS: insulin glargine (Lantus) pen - multi-dose SQ SCH (20:47)
[2024-05-20] MEDS ORDERED: temazepam 15mg capsule PO PRN (21:00)
[2024-05-20 21:37] VITALS: PULSE 85; RESP 20; O2SAT 90
[2024-05-21] VITALS (11 sets, daily range): BP systolic 95–112; BP diastolic 42–62; PULSE 59–61; RESP 14–21; TEMP 97.1–98.5; O2SAT 90–96
[2024-05-21] MEDS: methylPREDNISolone sod succ/PF 40mg inj. IV SCH ×2 (00:31→16:49)
[2024-05-21 02:43] LABS: BASOPHILS % (AUTO) 0.4 % (0-1); EOSINOPHILS % (AUTO) 0 % (0-6); HEMOGLOBIN 12.2 g/dl (12.0-16.0); LYMPHOCYTES # (AUTO) 0.8 X10'3 (1.1-4.8); LYMPHOCYTES % (AUTO) 5.5 % (21-51); MEAN CORPUSCULAR HEMOGLOBIN 28.8 PG (27.0-31.0); MEAN PLATELET VOLUME 9.9 FL (7.4-10.4); MONOCYTES # (AUTO) 0.5 X10'3 (0-0.9); MONOCYTES % (AUTO) 3.7 % (2-12); NEUTROPHILS # (AUTO) 12.4 X10'3 (1.8-7.7); NEUTROPHILS % (AUTO) 90.4 % (42-75); PLATELET COUNT 137 X10'3 (140-440); RED BLOOD COUNT 4.22 X10'6 (4.20-5.60); RED CELL DISTRIBUTION WIDTH 14.7 % (11.5-14.5); WHITE BLOOD COUNT 13.7 X10'3 (4.5-11.0)
[2024-05-21 02:55] LABS: ALANINE AMINOTRANSFERASE 172 U/L (12-78); ALBUMIN 3.3 G/DL (3.4-5.0); ALBUMIN/GLOBULIN RATIO 0.8 (1.1-1.5); ALKALINE PHOSPHATASE 138 IU/L (46-116); ANION GAP 10 (8-16); ASPARTATE AMINO TRANSFERASE 152 U/L (10-37); BILIRUBIN,TOTAL 0.6 MG/DL (0.1-1.0); BLOOD UREA NITROGEN 26 MG/DL (7-18); CHLORIDE 95 MMOL/L (99-107); CHOLESTEROL 116 MG/DL (0-200); CREATININE 1.24 MG/DL (0.40-0.90); GLUCOSE 280 MG/DL (70-104); HDL CHOLESTEROL 39 MG/DL (35-60); LDL CHOLESTEROL 52 MG/DL (50-100); POTASSIUM 4.6 MMOL/L (3.5-5.1); SODIUM 129 MMOL/L (135-145); TOTAL CARBON DIOXIDE 24.1 MMOL/L (24-32); TOTAL PROTEIN 7.4 G/DL (6.4-8.2); TRIGLYCERIDES 115 MG/DL (20-135); eCRCL 57 ML/MIN; eGFR 45 ML/MIN
[2024-05-21] MEDS ORDERED: SEMA1PEN3 (06:59)
[2024-05-21] MEDS ORDERED: EMPA25TA PO (06:59)
[2024-05-21] MEDS ORDERED: EPIN0.3A3 (06:59)
[2024-05-21] MEDS: DAPAGLIFLOZIN 10MG TABLET PO SCH (10:49)
[2024-05-21] MEDS: pantoprazole 40mg Tablet.DR PO SCH (10:49)
[2024-05-21] MEDS: CefTRIAXone/D5W-Rocephin 1gm 50 ML IV SCH (10:50)
[2024-05-21] MEDS: azithromycin/NS 500mg/250ml 250 ML IV SCH (10:50)
[2024-05-21] MEDS: ipratropium/albuterol 3ml nebule NEB SCH (12:00)
[2024-05-21] MEDS: INSULIN LISPRO 100 UNIT/ML INSULN.PEN MULTI-DOSE SQ SCH (13:58)
[2024-05-21] MEDS: atorvastatin 20mg tablet PO SCH (19:29)
[2024-05-21] MEDS: sacubitril/valsartan 24mg-26mg tablet PO SCH (19:30)
[2024-05-22] VITALS (9 sets, daily range): BP systolic 96–108; BP diastolic 52–60; PULSE 52–74; RESP 14–22; TEMP 96.9–97.9; O2SAT 90–98
[2024-05-22] MEDS: acetaminophen 325mg tablet PO PRN (00:41)
[2024-05-22 08:16] LABS: BASOPHILS % (AUTO) 0.1 % (0-1); EOSINOPHILS % (AUTO) 0 % (0-6); HEMATOCRIT 37.8 % (35.0-45.0); HEMOGLOBIN 12.2 g/dl (12.0-16.0); LYMPHOCYTES # (AUTO) 0.6 X10'3 (1.1-4.8); LYMPHOCYTES % (AUTO) 8.1 % (21-51); MEAN CORPUSCULAR HEMOGLOBIN 28.9 PG (27.0-31.0); MEAN CORPUSCULAR HGB CONC 32.3 g/dL (33.0-36.5); MEAN CORPUSCULAR VOLUME 89.5 FL (78-98); MEAN PLATELET VOLUME 9.8 FL (7.4-10.4); MONOCYTES # (AUTO) 0.2 X10'3 (0-0.9); MONOCYTES % (AUTO) 3.4 % (2-12); NEUTROPHILS # (AUTO) 6.1 X10'3 (1.8-7.7); NEUTROPHILS % (AUTO) 88.4 % (42-75); PLATELET COUNT 128 X10'3 (140-440); RED BLOOD COUNT 4.22 X10'6 (4.20-5.60); RED CELL DISTRIBUTION WIDTH 14.7 % (11.5-14.5); WHITE BLOOD COUNT 6.9 X10'3 (4.5-11.0)
[2024-05-22 08:21] LABS: ALANINE AMINOTRANSFERASE 157 U/L (12-78); ALBUMIN/GLOBULIN RATIO 0.7 (1.1-1.5); ALKALINE PHOSPHATASE 141 IU/L (46-116); ANION GAP 9 (8-16); ASPARTATE AMINO TRANSFERASE 79 U/L (10-37); BILIRUBIN,TOTAL 0.3 MG/DL (0.1-1.0); BLOOD UREA NITROGEN 35 MG/DL (7-18); BUN/CREATININE RATIO 26.1 (10.0-20.0); CALCIUM 9.2 MG/DL (8.5-10.1); CHLORIDE 95 MMOL/L (99-107); CREATININE 1.34 MG/DL (0.40-0.90); GLUCOSE 285 MG/DL (70-104); POTASSIUM 4.2 MMOL/L (3.5-5.1); SODIUM 129 MMOL/L (135-145); TOTAL CARBON DIOXIDE 25.1 MMOL/L (24-32); TOTAL PROTEIN 7.2 G/DL (6.4-8.2); eCRCL 53 ML/MIN; eGFR 42 ML/MIN
[2024-05-22] MEDS: spironolactone 25 MG tablet PO SCH (09:11)
[2024-05-22] MEDS: aspirin 81mg tab.chew PO SCH (09:12)
[2024-05-22] MEDS: clopidogrel 75mg tablet PO SCH (09:12)
[2024-05-22] MEDS: metoprolol succinate 25mg (24-HOUR) SR. Tablet PO SCH (09:12)
[2024-05-22] MEDS ORDERED: FURO40TA4 PO (11:52)
[2024-05-22] MEDS ORDERED: EMPA10TA PO (11:52)
[2024-05-22] MEDS ORDERED: AMI200T PO (11:52)
[2024-05-22] MEDS ORDERED: TAM75C PO (11:53)
[2024-05-22] MEDS ORDERED: methylPREDNISolone sod succ/PF 40mg inj. IV SCH (20:00)
== END 2024-05-22 15:47 | disposition home or self-care (01) | DRG 193 ==
LOC: ER 11:40 → ED HOLD 17:56 → PCU 3S 05-21 07:50
PROVIDERS: ADMIT Family Medicine; ATTEND Family Medicine
DX: J10.1 Influenza due to other identified influenza virus with other respiratory manifestations (principal); I50.23 Acute on chronic systolic (congestive) heart failure; J96.01 Acute respiratory failure with hypoxia; E87.1 Hypo-osmolality and hyponatremia; I13.0 Hypertensive heart and chronic kidney disease with heart failure and stage 1 through stage 4 chronic kidney disease, or unspecified chronic kidney disease; I42.9 Cardiomyopathy, unspecified; J44.1 Chronic obstructive pulmonary disease with (acute) exacerbation; E11.65 Type 2 diabetes mellitus with hyperglycemia; E78.5 Hyperlipidemia, unspecified; Z20.822 Contact with and (suspected) exposure to COVID-19; E11.22 Type 2 diabetes mellitus with diabetic chronic kidney disease; N18.9 Chronic kidney disease, unspecified; Z66 Do not resuscitate; Z78.9 Other specified health status; Z87.891 Personal history of nicotine dependence; Z88.5 Allergy status to narcotic agent; Z95.0 Presence of cardiac pacemaker; J98.8 Other specified respiratory disorders
CPT/HCPCS: 36415; 36600; 71045; 80053; 80061; 80305; 81001; 82803; 82948; 83036; 83605; 83735; 83880; 84100; 84145; 84443; 84484; 85018; 85025; 85379; 85610; 85651; 85730; 87040; 87081; 87502; 87503; 87811; 93306; 94640; 94760; 99285; A4615; G0378; J0456; J0696; J1644; J1815; J2405; J2919; J7030

== ENCOUNTER 2024-09-24 21:07 | Emergency (ER) | payer BC ==
[~2024-09-24] VITALS: Ht 175.3 cm; Wt 92.7 kg
[~2024-09-24 21:07] MED LIST changes: +EMPA10TA PO; +EPIN0.3A3; -HYDR50TA65 PO; +SEMA1PEN3; +TAM75C PO
--- NOTE | 2024-09-24 22:07 | Physician Documentation ---
History of Present Illness ~ Chief Complaint: Bite-animal Stated Complaint: DOG BITE Time Seen by MD: 23:31 Primary Medical Doctor: [facility] This is a 53-year-old female who presents with dog bites to bilateral posterior legs and buttocks. Patient reports unknown last Tdap booster. Tetanus within 5 years?: No Medication Reconciliation Allergies: Coded Allergies: codeine (Verified Allergy, Severe, itch and vomit, 02/03/24) bee venom protein (honey bee) (Verified Allergy, Unknown, 02/03/24) Scheduled Amiodarone Hcl (Cordarone), 100 MG PO BID Amox Tr/Potassium Clavulanate (Augmentin 875-125 Tablet), 1 TAB PO Q12H Aspirin (Children's Aspirin), 81 MG PO DAILY@0830 Atorvastatin Calcium (Atorvastatin Calcium), 40 MG PO QPM Clopidogrel Bisulfate (Clopidogrel), 75 MG PO DAILY Empagliflozin (Jardiance), 1 TAB PO DAILY Epinephrine (Epinephrine), ONCE, (Reported) Furosemide (Furosemide), 20 MG PO BID Metoprolol Succinate (Metoprolol Succinate), 25 MG PO DAILY Oseltamivir Phosphate (Tamiflu), 75 MG PO BID Sacubitril/Valsartan (Entresto 24 mg-26 mg Tablet), 1 TABLET PO BID Spironolactone (Aldactone), 12.5 MG PO DAILY@0830 Scheduled PRN Albuterol Sulfate (Ventolin Hfa), 2 PUFFS INH Q4HPRN PRN for wheezing, (Reported) Insulin Glargine,Hum.rec.anlog* (Lantus*), 1 UNITS SQ DAILY PRN for SLIDING SCALE, (Reported) Miscellaneous Medications Semaglutide (Ozempic), (Reported) Past Medical History Past Medical History: Congestive Heart Failure, Hypertension, Diabetes Past Surgical History: noncontributory Patient History: Patient reports no known family medical history. Alcohol Use: Rarely Drug Use: none, methamphetamine, other Lives with: Other Lives In: Home, Other Occupation: retired Review of Systems ROS Dog bites to legs and buttocks as stated above in the HPI, otherwise all systems are reviewed and negative. Physical Exam Vital Signs: Temperature: 98.0, Source: Oral, Heart Rate: 85, Respiratory Rate: 15, BP: 160/93, Pulse Oximetry: 96, Weight: 92.680 Oxygen Flow Rate: 0 Physical Exam VITALS: Reviewed and as above. GENERAL: Alert, nontoxic appearing, no apparent distress. RESPIRATORY: No increased work of breathing, no respiratory distress, speaking in full clear sentences SKIN: Multiple superficial appearing puncture wounds to bilateral posterior calves, thighs, and left buttock bleeding controlled, no surrounding erythema, no discharge. Ecchymosis to left buttock Progress Results/Orders Results/Orders Orders - ALEJANDRA PRABHAKAR Wound Care Orders (09/24/24 23:59) Completed Orders - ALEJANDRA PRABHAKAR Ketorolac Trometh 15mg/Ml Vial (Toradol (09/24/24 23:55) Amox Tr/Potassium Clavulanate (Augmentin (09/24/24 23:55) Tetanus/Pertuss/Diph Acell/Pf (Boostrix (09/24/24 23:55) Medications Received in ER Medications (Trade) Dose Ordered Sig/Sasha Route PRN Reason Start Time Stop Time Status Last Admin Dose Admin (Toradol injection) 15 mg ONCE ONCE IM 09/24/24 23:55 09/24/24 23:58 DC 09/25/24 00:26 15 MG (Augmentin 875-125mg tablet) 1 tab ONCE ONCE PO 09/24/24 23:55 09/24/24 23:56 DC 09/25/24 00:26 1 TAB (Boostrix vaccine syringe) 0.5 ml ONCE ONCE IMVAC 09/24/24 23:55 09/24/24 23:56 DC 09/25/24 00:27 0.5 ML Vital Signs 09/24/24 09/25/24 21:17 00:33 Temp 98.0 98.6 Pulse 85 82 Resp 15 18 B/P (MAP) 160/93 158/90 Pulse Ox 96 99 O2 Flow Rate 0 Medical Decision Making Findings MSE performed in triage and patient returned to ED lobby by nursing staff to await available ED room This 53-year-old female presented with multiple dog bites to her posterior lower extremities including calves, thighs, and left buttocks, all wounds appear superficial and non were amenable for suturing. Patient is otherwise well- appearing with remainder of physical exam benign. Wounds were thoroughly irrigated and cleaned by nursing staff. Patient provided pain medication and 1st dose of antibiotic. Plan is to discharge patient on course of oral antibiotics and patient will follow up with primary care provider in 2-3 days for wound recheck. Patient provided home care instructions, return to care precautions, and follow up instructions which he verbalized understanding of. Differential Dx:Considerations: Include: Cellulitis, Fracture, Hematoma, Laceration, Neurovascular injury, Punture wound, Retained foreign body Departure Disposition: HOME / SELF CARE / HOMELESS Impression: Primary Impression: Dog bite Qualified Codes: W54.0XXA - Bitten by dog, initial encounter Condition: Improved Discharge Instructions: Animal Bite, Adult Additional Instructions: Keep the wounds clean dry and covered. Take the antibiotics as prescribed. Please follow up with your primary care provider in the next few days wound recheck. Please return to the emergency department for any new or worsening concerning symptoms including but not limited to worsening pain and swelling in the area, discharge from the wounds, or if you develop a fever of 100.4 or higher. Do not take ibuprofen for the next 12 hours as you received a shot of Toradol in the emergency department which replaces this medication. Otherwise you may take ibuprofen and Tylenol as directed by [id number] package as needed for pain. Take ibuprofen with food to avoid stomach upset. Referrals: NO PRIMARY CARE PROVIDER (PCP) Prescriptions Amox Tr/Potassium Clavulanate (Augmentin 875-125 Tablet) 1 Each Tablet 1 TAB PO Q12H for 7 Days, #14 TAB Prov: ALEJANDRA PRABHAKAR 09/25/24 Education Educated: Patient Educated regarding: diagnosis, treatment, prognosis, need for follow up Signature Scribe Signature: No scribe Attestation: The note accurately reflects work and decisions made by me.VELASQUEZ Patricia 09/25/24 01:07 ALEJANDRA PRABHAKAR Sep 24, 2024 22:07
[2024-09-25] MEDS ORDERED: AMOX-117 PO (00:07)
[2024-09-25] MEDS: ketorolac trometh 15mg/ml vial 15 MG/ML ML IM ONE (00:26)
[2024-09-25] MEDS: amox tr/potassium clavulanate 875/125mg TAB PO ONE (00:26)
[2024-09-25] MEDS: TETanus/Pertussis (Acell)/Diphther VAC/PF (Tdap-Adult) 0.5ml syringe IMVAC ONE (00:27)
[2024-09-25 00:33] VITALS: BP 158/90; PULSE 82; RESP 18; TEMP 98.6; O2SAT 99
== END 2024-09-25 00:34 | disposition home or self-care (01) ==
LOC: ER 21:08
DX: S31.823A Puncture wound without foreign body of left buttock, initial encounter (principal); S71.132A Puncture wound without foreign body, left thigh, initial encounter; S71.131A Puncture wound without foreign body, right thigh, initial encounter; I11.0 Hypertensive heart disease with heart failure; I50.9 Heart failure, unspecified; E11.9 Type 2 diabetes mellitus without complications; F15.90 Other stimulant use, unspecified, uncomplicated; Z88.5 Allergy status to narcotic agent; Z91.030 Bee allergy status; Z79.899 Other long term (current) drug therapy; W54.0XXA Bitten by dog, initial encounter; Y93.89 Activity, other specified; Y92.89 Other specified places as the place of occurrence of the external cause; Y99.8 Other external cause status
CPT/HCPCS: 90471; 90715; 96372; 99284; J1885; A6449